=== PATIENT | male | born 1975 | race Caucasian/White ===

== ENCOUNTER 2022-02-24 13:18 | Emergency (ER) | payer OTHER, MEDICAID, SELFPAY ==
[2022-02-24] VITALS (14 sets, daily range): BP systolic 145–170; BP diastolic 81–92; PULSE 96–118; RESP 12–22; TEMP 36.9; O2SAT 96–99; BMI 35.2
--- NOTE | 2022-02-24 13:23 | DI.MRI.S_ITS ---
PROCEDURE: MR LUMBAR SPINE WO CON INDICATIONS: Back pain/urinary incontinence TECHNIQUE: Noncontrast sagittal T1 spin echo and T2 fast echo, sagittal STIR, and T2 fast spin echo through the lumbar spine. In cases with scoliosis, additional coronal T2 fast spin echo may be performed. COMPARISON: [facility], MR, MR LUMBAR SPINE WITH/WITHOUT CONTRAST, 08/15/2021, 15:42. [facility], CT, CT LUMBAR SPINE WITHOUT CONTRAST, 10/25/2021, 8:02. FINDINGS: Image quality: Excellent. Alignment and Curvature: There is normal bony alignment. Bone Marrow: L L3-4 and L4-5 interbody fusion with posterior yesenia and screw instrumentation as well as a decompressive laminectomies at L4 and L5. Wedge-shaped T12 compression fracture mild retropulsed fracture fragment and no bone marrow edema, stable from the prior Spinal Cord: Conus medullaris terminates at the L1 level. Visualized cord demonstrates normal signal and size. Paraspinous Soft Tissues: No paravertebral masses. At T11-12, posterior retropulsed fracture fragment and circumferential disc bulge results in moderate central stenosis with flattening the ventral surface of the cord. T12-L1: Normal appearance. L1-L2: Normal appearance. L2-L3: Disc space narrowing with circumferential disc bulge and hypertrophic facet joints results in moderate central stenosis. Moderate bilateral foraminal stenosis. L3-L4: Normal appearance. L4-L5: Discectomy and fusion. No central stenosis. Moderate bilateral foraminal stenosis greater on the left L5-S1: Discectomy and fusion. No central stenosis. Mild bilateral foraminal stenosis IMPRESSION: Multilevel degenerative disc disease and arthropathy results in moderate central stenosis at L2-3. Chronic T12 wedge-shaped compression fracture with retropulsed fracture fragment, stable from prior exam. Moderate T11-12 central stenosis and flattening the ventral surface of the cord. Lower lumbar spine fusion, instrumentation and decompressive laminectomies, as above Approved by: Tito Obrien M.D. on 02/24/2022 at 14:39
--- NOTE | 2022-02-24 13:45 | PC.NURSE ---
patient has a history of back surgery and back pain. This morning he had back pain and needed to urinate. Approx a half hour later after urinating he noticed his pants getting wet. Has not had incontinence since. At the ER today he had an intentional controlled urination.
--- NOTE | 2022-02-24 13:59 | ED_ITS ---
HPI - Back Pain/Injury General Chief Complaint: Back Pain/Injury Stated Complaint: Low back pain, ED-ED transfer from [facility] Seen by Provider: 02/24/22 13:23 Source: EMS History of Present Illness HPI Narrative: Patient brought in by ambulance from another hospital emergency department. I spoke with Dr. Lee the attending emergency department provider at that hospital, haribree latham, she states patient has history of chronic back pain. Had urinary incontinence while in their department this morning. Concerning for cauda equina or cord compression. No known injury. Neurologically otherwise intact. Strong patellar reflexes. Has chronic neuropathy. No IV drug use. Not diabetic. Patient needs MRI of the lumbar spine. I spoke with patient. He denies any fall or injury to his back. Three weeks ago he did injure his right lower extremity. Since then he has been limping and changing his gait and putting stress on his lower back. He states in [place] in 2014 he had surgery of his lumbar spine and has been doing well since then. No saddle paresthesia. Has chronic bilateral feet neuropathy which is not new. He states he was able to urinate this morning. He went to the hospital at 5:00 a.m.. He was able to walk to the bathroom and urinate by himself. On the 2nd episode he took wheelchair to the bathroom to urinate because of his neuropathy in his feet. When he returned in bed. He did notice that he had urinary incontinence and soiled his pants. This has not happened before. Denies any fever chills. Patient received pain medication EN route here. Patient in no distress. Vital signs noted. Related Data Previous Rx's Medication Instructions Recorded baclofen 20 mg tablet 20 mg PO TID #21 tabs 02/24/22 Allergies Allergy/AdvReac Type Severity Reaction Status Date / Time No Known Drug Allergies Allergy Verified 02/24/22 16:42 Review of Systems Review of Systems Narrative: GENERAL: Denies chills, fatigue, malaise, fever, sweats. HEENT: Denies sinus pain, ear pain, sore throat RESPIRATORY: Denies dyspnea, cough CARDIOVASCULAR: Denies chest pain, palpitations GASTROINTESTINAL: Denies nausea, vomiting, abdominal pain : Denies dysuria, frequency, hematuria, positive incontinence MUSCULOSKELETAL: denies muscle or bony pain, positive for back pain SKIN: Denies rash, skin lesions NEUROLOGIC: Denies weakness, negative for new numbness ROS Unobtainable: All systems reviewed & are unremarkable except as noted in HPI and below Patient History Social History Smoking Status: Never smoker Smoking Status: Never smoker Substance Use Type: does not use Exam Narrative Exam Narrative: GENERAL: in no distress, not toxic not dyspneic, patient in gown. Socks and shoes off HEAD: Normocephalic. EYES: Pupils equal round No scleral icterus. ENT: Mucous membranes moist. NECK: Trachea midline. CARDIOVASCULAR: Regular rate and rhythm without murmurs RESPIRATORY: Clear to auscultation. Breath sounds equal bilaterally. No wheezes, rales, or rhonchi. GASTROINTESTINAL: Abdomen soft, non-tender EXTREMITIES: No gross deformities. BACK: No flank tenderness. Mild right supragluteal muscle tenderness and right paralumbar muscle tenderness. No midline tenderness or step-off. No palpable mass. Patient able to sit up on bed without difficulty. No pain with sitting up. No pain with side bends or leaning back. NEURO: AOx4. Light touch intact to bilateral legs. Strong bilateral patellar reflexes. Strong bilateral hip and knee flexion and extension SKIN: Warm and dry PSYCH: Not anxious, is cooperative Initial Vital Signs Initial Vital Signs: Vital Signs Pulse Rate 106 H 02/24/22 13:29 Pulse Oximetry 99 02/24/22 13:29 Course Course Course Narrative: No new issues during course of stay Orders Ordered: ED Orders 02/24/22 13:23 MR lumbar spine wo con Stat 02/24/22 14:11 Ictotest Urine Stat Urinalysis and Microscopic Stat 02/24/22 15:40 CBC Auto Diff [Complete Blood Count AUTO DIFF] Stat CMP [Comprehensive Metabolic Panel] Stat Discontinued Medications Diazepam (Diazepam 10 Mg/2 Ml Syringe) 5 mg IV NOW ONE Stop: 02/24/22 14:07 Last Admin: 02/24/22 14:10 Dose: 5 mg Documented By: BERKLEY Diazepam (Diazepam 10 Mg/2 Ml Syringe) 5 mg IV NOW ONE Stop: 02/24/22 14:27 Last Admin: 02/24/22 14:35 Dose: 5 mg Documented By: BERKLEY Hydromorphone HCl (Hydromorphone 1 Mg Inj) 1 mg IV NOW ONE Stop: 02/24/22 16:36 Last Admin: 02/24/22 16:42 Dose: 1 mg Documented By: AT Lorazepam (Lorazepam 2 Mg/Ml Inj) 1 mg IV NOW ONE Stop: 02/24/22 14:00 Last Admin: 02/24/22 14:07 Dose: Not Given Documented By: BERKLEY Reevaluation(s) Reevaluation #1: Reviewed results with patient. Patient is looking for a new spine surgeon. I will provide patient phone number with Dr. Schwartz locally. At this time laboratory studies and imaging are reassuring. Likely chronic findings on MRI today. At this time uncertain source of today single episode of urinary incontinence. Patient back pain exacerbation likely due to recent broken leg that caused him to shift his gait causing to strain his lower back. He has not been immobilized. He is still walking and ambulating. Denies any calf pain no chest pain no dyspnea. Time: 16:36 Vital Signs Vital signs: Vital Signs - 8 hr 02/24/22 13:40 02/24/22 13:29 02/24/22 13:30 Temperature 98.4 F Pulse Rate 115 H 106 H Respiratory Rate 12 Blood Pressure 145/81 H Pulse Oximetry 97 99 99 Oxygen Delivery Method Room Air 02/24/22 13:35 02/24/22 13:35 02/24/22 14:00 Temperature Pulse Rate 114 H Respiratory Rate 12 Blood Pressure 145/81 H 156/84 H Pulse Oximetry 97 Oxygen Delivery Method 02/24/22 14:00 02/24/22 14:57 02/24/22 15:00 Temperature Pulse Rate 108 H 104 H 106 H Respiratory Rate 14 19 Blood Pressure Pulse Oximetry 96 97 Oxygen Delivery Method 02/24/22 15:30 Temperature Pulse Rate 110 H Respiratory Rate Blood Pressure Pulse Oximetry 98 Oxygen Delivery Method MDM - Back Pain/Injury Differential Diagnosis Differential diagnosis: Likely lumbar radiculopathy, sciatica, strain of lumbar region, discitis and other (Acute on chronic back pain. Cauda equina, cord compression syndrome) Lab Data Result diagrams: 02/24/22 15:40 02/24/22 15:40 Labs: Lab Results 02/24/22 02/24/22 02/24/22 Range/Units 14:11 14:11 15:40 WBC 8.0 (4.5-11.0) X10^3/uL RBC 4.83 (4.5-5.9) X10^6/uL Hgb 12.4 L (13.5-17.5) g/dL Hct 36.8 L (41-53) % MCV 76.3 L (80-100) fL MCH 25.6 L (26-34) PG MCHC 33.6 (30-36) % RDW 18.6 H (11.6-14.8) % Plt Count 448 H (150-400) X10^3/uL Neut % (Auto) 92.0 H (50-75) % Lymph % (Auto) 4.8 L (25-40) % Boundary % (Auto) 2.9 L (3-14) % Eos % (Auto) 0.0 L (2-4) % Baso % (Auto) 0.3 (0-2) % Neut # (Auto) 7400 H (4205-8400) /uL Lymph # (Auto) 400 L (1990-4122) /uL Boundary # (Auto) 200 (0-900) /uL Eos # (Auto) 0 (0-450) /uL Baso # (Auto) 0 (0-100) /uL Sodium (137-145) mmol/L Potassium (3.4-5.1) mmol/L Chloride (98-107) mmol/L Carbon Dioxide (22-32) mmol/L BUN (9-20) mg/dL Creatinine (0.66-1.25) mg/dL Estimated GFR (>60) mL/min BUN/Creatinine Ratio (6-22) Glucose (70-100) mg/dL Calcium (8.4-10.2) mg/dL Total Bilirubin (0.2-1.3) mg/dL AST (17-59) IU/L ALT (<50) IU/L Alkaline Phosphatase (38-126) U/L Total Protein (6.3-8.2) g/dL Albumin (3.5-5.0) g/dL Globulin (1.7-4.1) g/dL Albumin/Globulin Ratio (1.0-2.8) Urine Color Yellow Urine Appearance Clear Urine pH 6.5 (4.5-8.0) Ur Specific [place] 1.020 (1.000-1.035) Urine Protein 2+ H (Negative) Urine Glucose (UA) Negative (Negative) g/dL Urine Ketones 3+ H (NEGATIVE) Urine Occult Blood 3+ H (Negative) Urine Nitrate Negative (Negative) Urine Bilirubin 2+ H (NEGATIVE) Ur Bilirubin Confirm Negative (Negative) Urine Urobilinogen 0.2 (0.2) E.U./dL Ur Leukocyte Esterase Negative (NEGATIVE) Urine RBC Cancelled 5-10/hpf H Urine WBC Cancelled 1-5/hpf Ur Squamous Epith Cells Cancelled Ur Transition Epith Cell Cancelled Ur Renal Epithelial Cell Cancelled Calcium Oxalate Crystal Cancelled Uric Acid Crystals Cancelled Triple Phos Crystals Cancelled Other Crystals Cancelled Amorphous Sediment Cancelled Urine Bacteria Cancelled None seen Hyaline Casts Cancelled Granular Casts Cancelled RBC Casts Cancelled WBC Casts Cancelled Other Casts Cancelled Urine Mucus Cancelled Urine Trichomonas Cancelled Urine Yeast Cancelled Urine Sperm Cancelled Ur Culture Indicated? Cancelled Cult not indicated Micro UA Comment Cancelled 02/24/22 Range/Units 15:40 WBC (4.5-11.0) X10^3/uL RBC (4.5-5.9) X10^6/uL Hgb (13.5-17.5) g/dL Hct (41-53) % MCV (80-100) fL MCH (26-34) PG MCHC (30-36) % RDW (11.6-14.8) % Plt Count (150-400) X10^3/uL Neut % (Auto) (50-75) % Lymph % (Auto) (25-40) % Boundary % (Auto) (3-14) % Eos % (Auto) (2-4) % Baso % (Auto) (0-2) % Neut # (Auto) (9342-3663) /uL Lymph # (Auto) (3161-3290) /uL Boundary # (Auto) (0-900) /uL Eos # (Auto) (0-450) /uL Baso # (Auto) (0-100) /uL Sodium 135 L (137-145) mmol/L Potassium 4.4 (3.4-5.1) mmol/L Chloride 97 L (98-107) mmol/L Carbon Dioxide 23 (22-32) mmol/L BUN 13 (9-20) mg/dL Creatinine 0.93 (0.66-1.25) mg/dL Estimated GFR > 60 (>60) mL/min BUN/Creatinine Ratio 14.0 (6-22) Glucose 146 H (70-100) mg/dL Calcium 8.7 (8.4-10.2) mg/dL Total Bilirubin 1.5 H (0.2-1.3) mg/dL AST 47 (17-59) IU/L ALT 32 (<50) IU/L Alkaline Phosphatase 105 (38-126) U/L Total Protein 8.4 H (6.3-8.2) g/dL Albumin 5.0 (3.5-5.0) g/dL Globulin 3.4 (1.7-4.1) g/dL Albumin/Globulin Ratio 1.5 (1.0-2.8) Urine Color Urine Appearance Urine pH (4.5-8.0) Ur Specific [place] (1.000-1.035) Urine Protein (Negative) Urine Glucose (UA) (Negative) g/dL Urine Ketones (NEGATIVE) Urine Occult Blood (Negative) Urine Nitrate (Negative) Urine Bilirubin (NEGATIVE) Ur Bilirubin Confirm (Negative) Urine Urobilinogen (0.2) E.U./dL Ur Leukocyte Esterase (NEGATIVE) Urine RBC Urine WBC Ur Squamous Epith Cells Ur Transition Epith Cell Ur Renal Epithelial Cell Calcium Oxalate Crystal Uric Acid Crystals Triple Phos Crystals Other Crystals Amorphous Sediment Urine Bacteria Hyaline Casts Granular Casts RBC Casts WBC Casts Other Casts Urine Mucus Urine Trichomonas Urine Yeast Urine Sperm Ur Culture Indicated? Micro UA Comment Urine Dip Bedside Urine Glucose Negative Bedside Urine Bilirubin - Negative Bedside Urine Ketone +++ 80 Urine Specific [place] 1.020 Bedside Urine Occult Blood +++ Bedside Urine pH 6.0 Bedside Urine Protein + 30 Bedside Urine Urobilinogen - Negative Bedside Urine Nitrite - Negative Bedside Urine Leukocytes - Negative Esterase Imaging Data MRI lumbar spine: Radiologist's Impression: [address] [address] Magnetic Resonance Report Signed Patient: Pa Turner MR#: [id number] : 1975 Acct:[id number] Age/Sex: 46 / M Date of Service: 02/24/22 Loc: ED Accession Number: [id number] ?? Procedure: MR lumbar spine wo con Ordering Provider: Sedrick Kay MD PROCEDURE:? MR LUMBAR SPINE WO CON ? INDICATIONS:? Back pain/urinary incontinence ? TECHNIQUE:? Noncontrast sagittal T1 spin echo and T2 fast echo, sagittal STIR, and T2 fast spin echo through the lumbar spine.? In cases with scoliosis, additional coronal T2 fast spin echo may be performed.? ? COMPARISON:? [facility], MR, MR LUMBAR SPINE WITH/WITHOUT CONTRAST, 08/15/2021, 15:42.? [facility], CT, CT LUMBAR SPINE WITHOUT CONTRAST, 10/25/2021, 8:02. ? FINDINGS:? Image quality:? Excellent.? ? Alignment and Curvature:? There is normal bony alignment.? ? Bone Marrow:? L L3-4 and L4-5 interbody fusion with posterior yesenia and screw instrumentation as well as a decompressive laminectomies at L4 and L5. ? Wedge-shaped T12 compression fracture mild retropulsed fracture fragment and no bone marrow edema, stable from the prior ? Spinal Cord:? Conus medullaris terminates at the L1 level.? Visualized cord demonstrates normal signal and size.? ? Paraspinous Soft Tissues:? No paravertebral masses. ? At T11-12, posterior retropulsed fracture fragment and circumferential disc bulge results in moderate central stenosis with flattening the ventral surface of the cord.? ? T12-L1:? Normal appearance.? ? L1-L2:? Normal appearance.? ? L2-L3:? Disc space narrowing with circumferential disc bulge and hypertrophic facet joints results in moderate central stenosis.? Moderate bilateral foraminal stenosis. ? L3-L4:? Normal appearance.? ? L4-L5:? Discectomy and fusion.? No central stenosis.? Moderate bilateral foraminal stenosis greater on the left ? L5-S1:? Discectomy and fusion.? No central stenosis.? Mild bilateral foraminal stenosis ? ? IMPRESSION:? ? Multilevel degenerative disc disease and arthropathy results in moderate central stenosis at L2-3. ? Chronic T12 wedge-shaped compression fracture with retropulsed fracture fragment, stable from prior exam.? Moderate T11-12 central stenosis and flattening the ventral surface of the cord. ? Lower lumbar spine fusion, instrumentation and decompressive laminectomies, as above ? Approved by: Tito Obrien M.D. on 02/24/2022 at 14:39? MDM Narrative Medical decision making narrative: Appropriate for discharge. Exam and imaging and blood work reassuring. Patient symptoms likely due to his recent leg injury causing him to limp and change his gait and straining his lower back. At this time, uncertain source with a single episode of urinary incontinence for patient. Patient has not had any incontinence here. Return precautions reviewed with him. MRI reviewed. No acute changes. Ortho Spine referral given to patient. He desires discharge home. Discharge Plan Departure Patient Disposition: Home Clinical Impression: Strain of lumbar region Instructions: DI for Back Strain or Sprain Activity Restrictions/Additional Instructions: No driving or operating machinery today or when taking prescribed muscle relaxer. Please use your crutches when ambulating to reduce the strain on your lower back. Call provided ortho spine provider on Saturday for established a new spine surgeon in for re-evaluation. Return if worse if any questions or concerns Prescriptions: New baclofen 20 mg tablet 20 mg PO TID Qty: 21 0RF Referrals: Josy Storey MD [Physician] - Stand Alone Forms: Work Release Note
[2022-02-24] MEDS: diazePAM 10 MG/2 ML SYRINGE 5 MG IV ×2 (14:10→14:35)
[2022-02-24 14:51] LABS: Appearance Urine UA CLEAR; Bilirubin Urine UA 2+ (NEGATIVE); Color Urine UA YELLOW; Glucose Urine UA NEGATIVE (Negative); Ketones Urine UA 3+ (NEGATIVE); Leukocyte Esterase Urine UA NEGATIVE (NEGATIVE); Nitrite Urine UA NEGATIVE (Negative); Occult Blood Urine UA 3+ (Negative); Protein Urine UA 2+ (Negative); Urobilinogen Urine UA 0.2 E.U./dL (0.2); pH Urine UA 6.5 (4.5-8.0)
[2022-02-24 14:55] LABS: Ictotest Urine Negative (Negative)
[2022-02-24 14:56] LABS: Bacteria Urine None Seen; Culture Indicated Urine Cult Not Indicated; RBC Urine 5-10/HPF (0-5/HPF); WBC Urine 1-5/HPF (0-5/HPF)
[2022-02-24 15:58] LABS: Add Manual Diff / Slide Review NO; Basophils Absolute Auto 0 /uL (0-100); Basophils Percent Auto 0.3 % (0-2); Eosinophils Absolute Auto 0 /uL (0-450); Hematocrit 36.8 % (41-53); Hemoglobin 12.4 g/dL (13.5-17.5); Lymphocytes Absolute Auto 400 /uL (1100-4500); Lymphocytes Percent Auto 4.8 % (25-40); Mean Corpuscular HGB Conc 33.6 % (30-36); Mean Corpuscular Hemoglobin 25.6 PG (26-34); Mean Corpuscular Volume 76.3 fL (80-100); Monocytes Absolute Auto 200 /uL (0-900); Monocytes Percent Auto 2.9 % (3-14); Neutrophils Absolute Auto 7400 /uL (1500-7000); Platelet Count 448 X10^3/uL (150-400); Red Blood Cell Count 4.83 X10^6/uL (4.5-5.9); Red Cell Distribution Width 18.6 % (11.6-14.8)
[2022-02-24 16:06] LABS: Alanine Aminotransferase 32 IU/L (<50); Albumin Globulin Ratio 1.5 (1.0-2.8); Alkaline Phosphatase 105 U/L (38-126); Aspartate Aminotransferase 47 IU/L (17-59); Bilirubin Total 1.5 mg/dL (0.2-1.3); Blood Urea Nitrogen 13 mg/dL (9-20); Calcium 8.7 mg/dL (8.4-10.2); Carbon Dioxide 23 mmol/L (22-32); Chloride 97 mmol/L (98-107); Estimated Glomerular Filt Rate > 60 mL/min (>60); Globulin 3.4 g/dL (1.7-4.1); Glucose 146 mg/dL (70-100); HEMOLYSIS < 15 (0-50); Potassium 4.4 mmol/L (3.4-5.1); Sodium 135 mmol/L (137-145); Total Protein 8.4 g/dL (6.3-8.2)
[2022-02-24] MEDS: HYDROMORPHONE 1 MG INJ IV (16:42)
== END 2022-02-24 18:34 | disposition home or self-care (01) ==
PROVIDERS: Emergency Provider Emergency Medicine
DX: S39.012A Strain of muscle, fascia and tendon of lower back, initial encounter (principal)
CPT/HCPCS: 72148; 80053; 81001; 81003; 85025; 96374; 96375; 96376; 99284; J1170; J3360

== ENCOUNTER 2022-08-23 14:46 | Emergency (ER) | payer OTHER, MEDICAID, SELFPAY ==
[2022-08-23 14:50] VITALS: BP 141/99; PULSE 104; RESP 18; TEMP 36.3; O2SAT 98; BMI 77.0
--- NOTE | 2022-08-23 15:46 | ED_ITS ---
HPI - Back Pain/Injury <Arturo Azul PA-C - Last Filed: 08/23/22 20:21> General Chief Complaint: Back Pain/Injury Stated Complaint: Chronic back pain Time Seen by Provider: 08/23/22 14:58 Source: patient and family History of Present Illness HPI Narrative: This is a 46-year-old male presents to the emergency department due to acute on chronic lower back pain with new left lower extremity numbness affecting primarily the calf. Also states that he is worsening pain going down his posterior bilateral lower extremities. Patient has a extensive history of back surgeries including 2 surgeries with orthopedic spine surgeon in [place] as well as a neurosurgeon in [place]. He had an established neurosurgeon here in [facility] as well. Denies any urinary or bowel incontinence, saddle paresthesia, fevers, or any other concerning signs or symptoms. Se patient states that he called his neurosurgeon's office today who was told to come here to the emergency department. Related Data Previous Rx's Medication Instructions Recorded baclofen 20 mg tablet 20 mg PO TID #21 tabs 02/24/22 oxycodone 5 mg tablet 5 mg PO Q6H PRN pain #14 tabs 08/23/22 Allergies Allergy/AdvReac Type Severity Reaction Status Date / Time No Known Drug Allergies Allergy Verified 02/24/22 16:42 Review of Systems <Arturo Azul PA-C - Last Filed: 08/23/22 20:21> Review of Systems Narrative: GENERAL: Denies chills, fatigue, malaise, fever, sweats. HEENT: Denies sinus pain, ear pain, sore throat, difficulty swallowing, dizziness. RESPIRATORY: Denies dyspnea, cough, wheezing, hemoptysis, sputum. CARDIOVASCULAR: Denies chest pain, palpitations, orthopnea, edema, GASTROINTESTINAL: Denies nausea, vomiting, abdominal pain, diarrhea, constipation, melena. : Denies dysuria, frequency, incontinence, hematuria, urinary retention. MUSCULOSKELETAL: Reports lower back pain and bilateral lower extremity pain SKIN: Denies rash, skin lesions, or other NEUROLOGIC: Reports left lower extremity numbness, denies change in speech, confusion, seizures, incoordination. PSYCHIATRIC: No concerning psychosocial issues. 12 point review of systems is negative except for those stated above Patient History <Arturo Azul PA-C - Last Filed: 08/23/22 20:21> Social History Smoking Status: Never smoker Smoking Status: Never smoker Substance Use Type: does not use Exam <BORIS Gamez Last Filed: 08/23/22 20:21> Narrative Exam Narrative: GENERAL: Well-developed patient, in mild distress. HEAD: Atraumatic. Normocephalic. EYES: Pupils equal round and reactive. Extraocular motions intact. No scleral icterus. No injection or drainage. ENT: Nose without bleeding, purulent drainage. Throat without erythema, tonsillar hypertrophy or exudate. Airway patent. NECK: Trachea midline. Non tender EXTREMITIES: No edema or joint tenderness. BACK: Lumbar tenderness to palpation. No flank tenderness. NEURO: Decreased sensation to the left calf SKIN: No rash or erythema of visible areas Initial Vital Signs Initial Vital Signs: Vital Signs Temperature 97.4 F L 08/23/22 14:50 Pulse Rate 104 H 08/23/22 14:50 Respiratory Rate 18 08/23/22 14:50 Blood Pressure 141/99 H 08/23/22 14:50 Pulse Oximetry 98 08/23/22 14:50 Oxygen Delivery Method 08/23/22 14:50 <Mireille Blevins DO - Last Filed: 08/24/22 02:28> Initial Vital Signs Initial Vital Signs: Vital Signs Temperature 97.4 F L 08/23/22 14:50 Pulse Rate 104 H 08/23/22 14:50 Respiratory Rate 18 08/23/22 14:50 Blood Pressure 141/99 H 08/23/22 14:50 Pulse Oximetry 98 08/23/22 14:50 Oxygen Delivery Method 08/23/22 14:50 Course <Arturo Azul PA-C - Last Filed: 08/23/22 20:21> Orders Ordered: ED Orders 08/23/22 18:40 MR lumbar spine wo con Stat Discontinued Medications Diazepam (Diazepam 2 Mg Tablet) 2 mg PO NOW ONE Stop: 08/23/22 15:33 Last Admin: 08/23/22 19:28 Dose: 2 mg Documented By: PATEL Oxycodone/Acetaminophen (Oxycodone/Apap 5/325 Prepack) 1 bottle MISC SEEINSTR ONE Stop: 08/23/22 22:51 Last Admin: 08/23/22 22:57 Dose: 1 bottle Documented By: MARI Reevaluation(s) Reevaluation #1: 1550: Informed by oxygen equipment technician [facility] Discussed with the patient and he states would comfortable waiting until then here in the emergency department. Vital Signs Vital signs: Vital Signs - 8 hr 08/23/22 21:24 Pulse Rate 86 Blood Pressure 128/91 H Pulse Oximetry 97 Oxygen Delivery Method Room Air <Mireille Blevnis DO - Last Filed: 08/24/22 02:28> Orders Ordered: ED Orders 08/23/22 18:40 MR lumbar spine wo con Stat Discontinued Medications Diazepam (Diazepam 2 Mg Tablet) 2 mg PO NOW ONE Stop: 08/23/22 15:33 Last Admin: 08/23/22 19:28 Dose: 2 mg Documented By: PATEL Oxycodone/Acetaminophen (Oxycodone/Apap 5/325 Prepack) 1 bottle MISC SEEINSTR ONE Stop: 08/23/22 22:51 Last Admin: 08/23/22 22:57 Dose: 1 bottle Documented By: MARI Consultations Consultation #1: Dr. Martinez, neurosurgery [facility]. Reviewed current findings from [facility], appears stable from his last MRI according to report. He not able to r eview the images at this moment but patient is felt appropriate for discharge and follow-up with office. Dr. Martinez states office will reach out to patient during the daytime tomorrow short-term follow-up. Vital Signs Vital signs: Vital Signs - 8 hr 08/23/22 21:24 Pulse Rate 86 Blood Pressure 128/91 H Pulse Oximetry 97 Oxygen Delivery Method Room Air MDM - Back Pain/Injury <Arturo Azul PA-C - Last Filed: 08/23/22 20:21> Medical Records Medical records narrative: On record review patient was seen approximately 6 months ago with similar symptoms along with an episode of urinary incontinence. Lumbar MRI was ordered which showed IMPRESSION:? ? Multilevel degenerative disc disease and arthropathy results in moderate central stenosis at L2-3. ? Chronic T12 wedge-shaped compression fracture with retropulsed fracture fragment, stable from prior exam.? Moderate T11-12 central stenosis and flattening the ventral surface of the cord. ? Lower lumbar spine fusion, instrumentation and decompressive laminectomies, as above These findings were determined to be chronic in nature the patient was instructed to follow up with spine surgeon, Dr. Schwartz for further evaluation. MDM Narrative Medical decision making narrative: This is a 46-year-old male presents to the emergency department due to acute on chronic lower back pain with new left lower extremity numbness. Due to this new numbness a lumbar MRI was ordered. Lumbar MRI pending at of this note prescribed this patient states that he is moderate anxiety during MRI. Discussed patient and transfer care to my attending physician, Dr. Blevins for further management. <Mireille Blevins, DO - Last Filed: 08/24/22 02:28> Imaging Data MRI lumbar spine: Radiologist's Impression: Pa Turner??46??M??1975 ? Allergy/Adv: No Known Drug Allergies Close Lumbar Spine MRI (Signed) Farzad Vidales - 08/23/22 Lumbar Spine MRI (Signed) Tito Obrien - 02/24/22 Launch?[place] [address] Magnetic Resonance Report Signed Patient: Pa Turner MR#: [id number] : 1975 Acct:[id number] Age/Sex: 46 / M Date of Service: 08/23/22 Loc: ED Accession Number: [id number] ?? Procedure: MR lumbar spine wo con Ordering Provider: Arturo Azul P.A-C PROCEDURE:? MR LUMBAR SPINE WO CON ? INDICATIONS:? Hx of spinal surgeries, new Left lower leg numnbess ? TECHNIQUE:? Noncontrast sagittal T1 spin echo and T2 fast echo, sagittal STIR, and T2 fast spin echo through the lumbar spine.? In cases with scoliosis, additional coronal T2 fast spin echo may be performed.? ? COMPARISON:? [facility], , MR LUMBAR SPINE WO CON, 02/24/2022, 14:33. ? FINDINGS:? Image quality:? There is magnetic susceptibility artifact secondary to patient's surgical hardware limiting evaluation.? ? Alignment and Curvature:? There is unchanged bony alignment.? ? Bone Marrow:? Marrow is of normal overall signal.? No acute vertebral body compression fractures.? There is a moderate superior endplate anterior compression deformity of the T12 vertebral body redemonstrated.? There is a T1 and T2 hyperintense lesion within the L2 vertebral body redemonstrated consistent with an intraosseous hemangioma.? ? Postsurgical changes redemonstrated in the lower lumbar spine status post posterior fixation and fusion at L3 through S1 with bilateral pedicle screws and posterior fixation rods.? Posterior laminectomies are also demonstrated at L4 and L5.? There are intervertebral spacers at L3-L4, L4-5, and L5-S1 with partial fusion at L4-5. ? Spinal Cord:? Conus medullaris terminates at the L1 level.? Visualized cord demonstrates normal signal and size.? ? Paraspinous Soft Tissues:? No paravertebral masses.? ? T11-T12:? There is slight posterior displacement along the superior endplate of the T12 vertebral body with associated mild spinal canal narrowing redemonstrated. ? T12-L1:? Normal appearance.? ? L1-L2:? Normal in appearance. ? L2-L3:? Mild disc desiccation with mild loss of disc height and a small broad- based disc bulge.? There is moderate facet arthropathy and ligamentum flavum virtually.? Findings contribute to moderate to severe spinal canal narrowing with moderate left and [id number] right neural foraminal narrowing.? Findings are similar to the prior study. ? L3-L4:? Status post partial discectomy within intervertebral spacer.? Prior posterior laminectomy also redemonstrated.? No spinal canal narrowing.? There is minimal bilateral neural foraminal narrowing ? L4-L5:? Status post partial discectomy with an intervertebral spacer and partial fusion.? Posterior laminectomy also redemonstrated.? No spinal canal narrowing.? Neural foramina are not well evaluated due to magnetic susceptibility artifact.? There is suspec karina mild bilateral narrowing. ? L5-S1:? Status post partial discectomy with an intervertebral spacer as well as a posterior laminectomy.? No spinal canal narrowing.? No definite neural foraminal narrowing. ? ? IMPRESSION:? ? 1. Extensive postsurgical changes in the lower lumbar spine status post posterior fusion and fixation at L3 through S1 with bilateral pedicle screws, intervertebral spacers, and posterior laminectomies. ? 2. Moderate to severe spinal canal narrowing at L2-L3.? Findings are similar to the prior study. ? 3. Chronic superior endplate compression deformity of the T12 vertebral body with associated mild spinal canal narrowing. ? ? ? Dictated by: Farzad Vidales M.D. on 08/23/2022 at 21:53 ? ? Approved by: Farzad Vidales M.D. on 08/23/2022 at 22:09?? [facility] Narrative Medical decision making narrative: This is a 46-year-old male presents to the emergency department due to acute on chronic lower back pain with new left lower extremity numbness. Due to this new numbness a lumbar MRI was ordered. Lumbar MRI pending at of this note prescribed this patient states that he is moderate anxiety during MRI. Discussed patient and transfer care to my attending physician, Dr. Blevins for further management. 08/23/22 Felicity: Patient signed out to myself by [facility] Jorge Alberto. Patient was seen and evaluated independently by myself. He has a history of 3 prior surgeries, he has had some persistent symptoms over the years he is had injections in the localized area is in process of potentially receiving a neuro stimulator. Patient states he developed new numbness in his left calf and new pain down his right leg that was significantly worsening and he was falling a lot. He was seen at [facility] in [place] and was discharged with muscle relaxer as and oral narcotic pain medication which he states was helpful. He states he was continuing to having falling but has not had any today and has been able to ambulate. States the numbness isn't progressing further but is still present. He denies any new bowel or bladder incontinence. He denies any other acute neurologic changes. He sees Dr. Martinez with Neurosurgery out of [facility]. Patient was signed out while awaiting MR report, is found to have extensive postsurgical changes he has moderate to severe narrowing at L2-L3 there is also a T1 and T2 hyperintense lesion at the L2 vertebral body re demonstrated consistent with intraosseous hemangioma, slight displacement along the superior endplate of T12 vertebral body with associated mild spinal canal narrowing redemonstrated. There is moderate left and moderate to right neural foraminal narrowing consistent with prior study. I spoke with Dr. Martinez who reviewed his images over the phone. Patient is felt appropriate to discharge home, he did ask if we can push MR images and will also send a disc in case any technical issues. He will have the office reach out to the patient in the morning. Discussed with patient he feels comfortable with this plan, he is well aware of red flag symptoms and return precautions. Was given short course of narcotic pain medication. Discharge Plan Departure Patient Disposition: Home Clinical Impression: Radiculopathy, Spinal stenosis of lumbar region Activity Restrictions/Additional Instructions: I spoke with Dr. Martinez this evening. He would like to follow-up with you in the office. He states the office should be reaching out to you tomorrow. If you have not heard from them by noon tomorrow, please call Dr. Martinez's office. Your MRI images were pushed so he may be able to review them tomorrow but take the MR disc with you in case there are technical issues with your images being transferred. You may take Tylenol up to a 1000 mg every 6 hours as needed. You may take oxycodone 1-2 tablets every 6 hours as needed. Prescription sent to [facility] in [place] Please return for new or worsening weakness, numbness, loss of sensation, loss of bowel or bladder control, inability to walk or ambulate, fevers, or other new or concerning changes. Prescriptions: New oxycodone 5 mg tablet 5 mg PO Q6H PRN (Reason: pain) Qty: 14 0RF No Action baclofen 20 mg tablet 20 mg PO TID Qty: 21 0RF Stand Alone Forms: Patient Portal/API
--- NOTE | 2022-08-23 18:07 | PC.NURSE ---
Pt ambulating with slow, steady gait.
--- NOTE | 2022-08-23 18:40 | DI.MRI.S_ITS ---
PROCEDURE: MR LUMBAR SPINE WO CON INDICATIONS: Hx of spinal surgeries, new Left lower leg numnbess TECHNIQUE: Noncontrast sagittal T1 spin echo and T2 fast echo, sagittal STIR, and T2 fast spin echo through the lumbar spine. In cases with scoliosis, additional coronal T2 fast spin echo may be performed. COMPARISON: [facility], , MR LUMBAR SPINE WO CON, 02/24/2022, 14:33. FINDINGS: Image quality: There is magnetic susceptibility artifact secondary to patient's surgical hardware limiting evaluation. Alignment and Curvature: There is unchanged bony alignment. Bone Marrow: Marrow is of normal overall signal. No acute vertebral body compression fractures. There is a moderate superior endplate anterior compression deformity of the T12 vertebral body redemonstrated. There is a T1 and T2 hyperintense lesion within the L2 vertebral body redemonstrated consistent with an intraosseous hemangioma. Postsurgical changes redemonstrated in the lower lumbar spine status post posterior fixation and fusion at L3 through S1 with bilateral pedicle screws and posterior fixation rods. Posterior laminectomies are also demonstrated at L4 and L5. There are intervertebral spacers at L3-L4, L4-5, and L5-S1 with partial fusion at L4-5. Spinal Cord: Conus medullaris terminates at the L1 level. Visualized cord demonstrates normal signal and size. Paraspinous Soft Tissues: No paravertebral masses. T11-T12: There is slight posterior displacement along the superior endplate of the T12 vertebral body with associated mild spinal canal narrowing redemonstrated. T12-L1: Normal appearance. L1-L2: Normal in appearance. L2-L3: Mild disc desiccation with mild loss of disc height and a small broad-based disc bulge. There is moderate facet arthropathy and ligamentum flavum virtually. Findings contribute to moderate to severe spinal canal narrowing with moderate left and [id number] right neural foraminal narrowing. Findings are similar to the prior study. L3-L4: Status post partial discectomy within intervertebral spacer. Prior posterior laminectomy also redemonstrated. No spinal canal narrowing. There is minimal bilateral neural foraminal narrowing L4-L5: Status post partial discectomy with an intervertebral spacer and partial fusion. Posterior laminectomy also redemonstrated. No spinal canal narrowing. Neural foramina are not well evaluated due to magnetic susceptibility artifact. There is suspected mild bilateral narrowing. L5-S1: Status post partial discectomy with an intervertebral spacer as well as a posterior laminectomy. No spinal canal narrowing. No definite neural foraminal narrowing. IMPRESSION: 1. Extensive postsurgical changes in the lower lumbar spine status post posterior fusion and fixation at L3 through S1 with bilateral pedicle screws, intervertebral spacers, and posterior laminectomies. 2. Moderate to severe spinal canal narrowing at L2-L3. Findings are similar to the prior study. 3. Chronic superior endplate compression deformity of the T12 vertebral body with associated mild spinal canal narrowing. Dictated by: Farzad Vidales M.D. on 08/23/2022 at 21:53 Approved by: Farzad Vidales M.D. on 08/23/2022 at 22:09
[2022-08-23] MEDS: diazePAM 2 MG TABLET PO (19:28)
[2022-08-23 21:24] VITALS: BP 128/91; PULSE 86; O2SAT 97
[2022-08-23] MEDS: OXYCODONE/APAP 5/325 PREPACK 1 BOTTLE MISC (22:57)
== END 2022-08-23 23:05 | disposition home or self-care (01) ==
PROVIDERS: Emergency Provider Emergency Medicine
DX: M54.16 Radiculopathy, lumbar region (principal); M48.061 Spinal stenosis, lumbar region without neurogenic claudication
CPT/HCPCS: 72148; 99283

== ENCOUNTER 2022-11-10 21:54 | Emergency (ER) | payer OTHER, MEDICAID, SELFPAY ==
[2022-11-10 22:00] VITALS: BP 150/105; PULSE 83; RESP 18; TEMP 36.7; O2SAT 98; BMI 35.2
--- NOTE | 2022-11-10 22:04 | PC.NURSE ---
Addendum entered by Isabell Mccollum R.N. 11/10/22 22:09: Pt reports slipping on a ramp on 10/24/22 but catching himself and having subsequent intermittent lower right back pain. Pt presents tonight with worsening back pain that radiates to his right testicle and right leg. Original Note: Pt reports 3 prior back surgeries since 2009.
--- NOTE | 2022-11-10 22:10 | ED.BACK ---
HPI - Back Pain/Injury General Chief Complaint: Back Pain/Injury Stated Complaint: back pain Time Seen by Provider: 11/10/22 21:56 Source: patient History of Present Illness HPI Narrative: 47-year-old male nonsmoker with longstanding history of back problems, prior surgeries and radiculopathy with left-sided footdrop presents with his in the chief complaint of increasing pain in his right lower back with radiation around his side and into his right testicle and somewhat extending into his right leg, there is some numbness down his right leg but no weakness. He has no new footdrop, no new lower extremity weakness. No trauma, fever or use of blood thinners. No trouble controlling bowel or bladder. His pain is worse when he moves and improves with rest. He does take Lyrica and methocarbamol but does not have any opioids and has not taken steroids and some time. He does have a consultation with his back surgeon upcoming to discuss the use of a back stimulator. He states that he had been relatively stable until a few weeks ago when he was carrying a heavy object and felt a pulling sensation in his back. He denies any significant or specific traumatic injury Related Data Previous Rx's Medication Instructions Recorded baclofen 20 mg tablet 20 mg PO TID #21 tabs 02/24/22 oxycodone 5 mg tablet 5 mg PO Q6H PRN pain #14 tabs 08/23/22 hydrocodone 5 mg-acetaminophen 325 1 tab PO Q4-6H PRN pain #20 tabs 11/10/22 mg tablet methylprednisolone 4 mg tablets in See Rx Instructions PO .COMPLEX 11/10/22 a dose pack (Medrol (Ambrose)) #21 ea Allergies Allergy/AdvReac Type Severity Reaction Status Date / Time No Known Drug Allergies Allergy Verified 02/24/22 16:42 Review of Systems Review of Systems Narrative: GENERAL: Denies chills, fatigue, malaise, fever, sweats. HEENT: Denies sinus pain, ear pain, sore throat, difficulty swallowing, dizziness. RESPIRATORY: Denies dyspnea, cough, wheezing, hemoptysis, sputum. CARDIOVASCULAR: Denies chest pain, palpitations, orthopnea, edema, GASTROINTESTINAL: Denies nausea, vomiting, abdominal pain, diarrhea, constipation, melena. : Denies dysuria, frequency, incontinence, hematuria, urinary retention. MUSCULOSKELETAL: See HPI SKIN: Denies rash, skin lesions, or other NEUROLOGIC: See HPI PSYCHIATRIC: No concerning psychosocial issues. 12 point review of systems is negative except for those stated above Patient History Social History Smoking Status: Never smoker Smoking Status: Never smoker Substance Use Type: does not use Exam Narrative Exam Narrative: GENERAL: [47] year old patient appears stated age. Well-developed patient, in mild distress. HEAD: Atraumatic. Normocephalic. EYES: Pupils equal round and reactive. Extraocular motions intact. No scleral icterus. No injection or drainage. ENT: Nose without bleeding, purulent drainage. Throat without erythema, tonsillar hypertrophy or exudate. Airway patent. NECK: Trachea midline. Non tender CARDIOVASCULAR: Regular rate and rhythm without murmurs, gallops, or rubs. RESPIRATORY: Clear to auscultation. Breath sounds equal bilaterally. No wheezes, rales, or rhonchi. GASTROINTESTINAL: Abdomen soft, non-tender, nondistended. EXTREMITIES: No edema or joint tenderness. BACK: chlorine cell tender but free of any obvious external abnormalities. Patient exam notes decreased range of motion and muscle spasm, but no CVA tenderness, or vertebral point tenderness. There are no symptoms of cauda equina such as saddle anesthesia, and decreased reflexes, decreased sensation or strength. NEURO: AOx3. SKIN: No rash or erythema of visible areas Initial Vital Signs Initial Vital Signs: Vital Signs Temperature 98.1 F 11/10/22 22:00 Pulse Rate 83 11/10/22 22:00 Respiratory Rate 18 11/10/22 22:00 Blood Pressure 150/105 H 11/10/22 22:00 Pulse Oximetry 98 11/10/22 22:00 Oxygen Delivery Method Room Air 11/10/22 22:00 Course Orders Ordered: Discontinued Medications Hydrocodone Bitart/Acetaminophen (Hydrocodone/Acet 5/325 Prepack) 1 bottle MISC SEEINSTR ONE Stop: 11/10/22 23:18 Last Admin: 11/10/22 23:24 Dose: 1 bottle Documented By: CAESAR Hydromorphone HCl (Hydromorphone 1 Mg Inj) 1 mg IM NOW ONE Stop: 11/10/22 23:17 Last Admin: 11/10/22 23:24 Dose: 1 mg Documented By: CAESAR Ketorolac Tromethamine (Ketorolac 30 Mg/Ml Vial) 30 mg IM NOW ONE Stop: 11/10/22 23:17 Last Admin: 11/10/22 23:25 Dose: 30 mg Documented By: SB Prednisone (Prednisone 20 Mg Tablet) 40 mg PO NOW ONE Stop: 11/10/22 23:17 Last Admin: 11/10/22 23:25 Dose: 40 mg Documented By: CAESAR Vital Signs Vital signs: Vital Signs - 8 hr 11/10/22 22:00 11/10/22 22:31 11/10/22 23:00 Temperature 98.1 F Pulse Rate 83 64 Respiratory Rate 18 Blood Pressure 150/105 H 143/96 H 129/91 H Pulse Oximetry 98 100 Oxygen Delivery Method Room Air 11/10/22 23:00 11/10/22 23:30 11/10/22 23:30 Temperature Pulse Rate 69 67 Respiratory Rate Blood Pressure 140/94 H Pulse Oximetry 100 100 Oxygen Delivery Method MDM - Back Pain/Injury MDM Narrative Medical decision making narrative: CC: 47-year-old male with longstanding history of back pain Complicating co-morbidities: Data collected from: Patient Medical records reviewed: Prior notes reviewed in our EMR Differential considered, but not limited to: Lumbar radiculopathy, cauda equina, epidural abscess, epidural hematoma versus other Exam documented above, pertinent findings include: No saddle anesthesia, 5/5 muscle strength bilateral lower extremities, sensation intact, reflexes intact. Treatments: Dilaudid, ketorolac, steroid Re-evaluations: Patient does have improvement in symptoms Discussion: Patient with chronic back pain presents with worsening of symptoms but no red flag findings suggestive of a neurosurgical emergency such as saddle anesthesia, depressed reflexes, lower extremity weakness, fever, use of blood thinners. His symptoms improve with above-stated therapies. Prescription sent to his pharmacy. He has scheduled follow-up with his spine doctors. He and family understand and agree with the diagnosis and plan and have had their questions answered to their apparent satisfaction Disposition: see below, along with detailed discharge instructions that have been reviewed with patient as well as indications for ED re-evaluation and additional outpatient follow up Discharge Plan Departure Patient Disposition: Home Clinical Impression: Acute back pain with radiculopathy Instructions: DI for Lumbar Radiculopathy Activity Restrictions/Additional Instructions: *You have been diagnosed with [lumbar radiculopathy. As we discussed your history and physical exam are reassuring and there is no obvious evidence of a neurosurgical emergency] *What to do: *Please continue to take your regular medications as directed. [x ] New medication prescriptions sent to your pharmacy: [ [facility]] [ ] New medication written as a paper prescription [ ] No new medications given *Please follow up with your primary care provider in 2-3 days, call for an appointment. Let them know you were seen in the Emergency Department and that we ask that you be seen in follow up. We will electronically transmit a record of today's note if your PCP is in our system *If you do not have a primary care provider please contact the [facility] Resource line at [phone]. They will ask some questions about your medical history and help get you set up with a doctor in the community. *Return to Emergency Department if you should have any new, worsening or concerning symptoms, such as [fever greater than 101 F, shaking chills, worsening pain, persistent vomiting or other bothersome symptoms] You have been prescribed a short course of narcotic medications. These are potentially dangerous and addictive medications that should be used carefully. While on these medications you cannot drive or operate heavy machinery. Additionally, you cannot sign legal documents or perform any duties such as this. 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 Please understand that we cannot provide further refills of narcotics or controlled substances through the ED and your pain management will need to be through your Primary Care Provider Prescriptions: New hydrocodone-acetaminophen 5-325 mg tablet 1 tab PO Q4-6H PRN (Reason: pain) Qty: 20 0RF methylprednisolone [Medrol (Ambrose)] 4 mg tablets,dose pack See Rx Instructions .ROUTE .COMPLEX Qty: 21 0RF Rx Instructions: orally per package directions No Action oxycodone 5 mg tablet 5 mg PO Q6H PRN (Reason: pain) Qty: 14 0RF baclofen 20 mg tablet 20 mg PO TID Qty: 21 0RF Referrals: Alex Barth DO [Physician] - Stand Alone Forms: Patient Portal/API
[2022-11-10 22:31] VITALS: BP 143/96; PULSE 64; O2SAT 100
[2022-11-10 23:00] VITALS: BP 129/91; PULSE 69; O2SAT 100
[2022-11-10] MEDS: HYDROCODONE/ACET 5/325 PREPACK 1 BOTTLE MISC (23:24)
[2022-11-10] MEDS: HYDROMORPHONE 1 MG INJ IM (23:24)
[2022-11-10] MEDS: KETOROLAC 30 MG/ML VIAL IM (23:25)
[2022-11-10] MEDS: predniSONE 20 MG TABLET 40 MG PO (23:25)
[2022-11-10 23:30] VITALS: BP 140/94; PULSE 67; O2SAT 100
== END 2022-11-11 00:01 | disposition home or self-care (01) ==
PROVIDERS: Emergency Provider Emergency Medicine
DX: M54.16 Radiculopathy, lumbar region (principal)
CPT/HCPCS: 96372; 99283; J1170; J1885

== ENCOUNTER 2022-11-18 20:28 | Emergency (ER) | payer OTHER, MEDICAID, SELFPAY ==
[2022-11-18] VITALS (7 sets, daily range): BP systolic 132–152; BP diastolic 86–97; PULSE 64–94; RESP 16; TEMP 37.3; O2SAT 96–99; BMI 35.2
--- NOTE | 2022-11-18 21:09 | ED.BACK ---
HPI - Back Pain/Injury General Chief Complaint: Back Pain/Injury Stated Complaint: Bilat LE weakness Time Seen by Provider: 11/18/22 21:05 Source: patient and EMS Mode of arrival: EMS Limitations: no limitations History of Present Illness HPI Narrative: Patient is a 47-year-old male. Has a longstanding history of lumbar issues. Has had multiple surgeries in the past. His hardware in place. States he did not have any problems until just recently. He states he slipped while walking approximately 2 weeks ago. He did not fall. Since that time he is had increasing issues with discomfort in his back and weakness in his legs and radiation of discomfort down into his legs. Was seen here in the emergency department recently for the symptoms. Was discharged home with steroids. Took the steroids as directed. Thought maybe he has improved with that treatment until this evening who states he had a fairly sudden onset of bilateral lower extremity weakness. He states that he is having some discomfort in his back but it is more weakness. He is not having any fevers. No urinary symptoms. No change in bowel habits. He says it feels like is having some spasming in his lower back. Related Data Previous Rx's Medication Instructions Recorded baclofen 20 mg tablet 20 mg PO TID #21 tabs 02/24/22 oxycodone 5 mg tablet 5 mg PO Q6H PRN pain #14 tabs 08/23/22 hydrocodone 5 mg-acetaminophen 325 1 tab PO Q4-6H PRN pain #20 tabs 11/10/22 mg tablet methylprednisolone 4 mg tablets in See Rx Instructions PO .COMPLEX 11/10/22 a dose pack (Medrol (Ambrose)) #21 ea hydrocodone 5 mg-acetaminophen 325 1 tab PO Q4-6H PRN pain #10 tabs 11/18/22 mg tablet methylprednisolone 4 mg tablets in See Rx Instructions PO .COMPLEX 11/18/22 a dose pack (Medrol (Ambrose)) #21 ea Allergies Allergy/AdvReac Type Severity Reaction Status Date / Time No Known Drug Allergies Allergy Verified 02/24/22 16:42 Review of Systems Constitutional Constitutional: Reports system reviewed and no additional complaints, except as documented Gastrointestinal Gastrointestinal: Reports system reviewed and no additional complaints, except as documented Genitourinary Genitourinary: Reports system reviewed and no additional complaints, except as documented Musculoskeletal Musculoskeletal: Reports system reviewed and no additional complaints, except as documented Integumentary/Breasts Skin/Breast: Reports system reviewed and no additional complaints, except as documented Neurologic Neurologic: Reports system reviewed and no additional complaints, except as documented Hematologic/Lymphatic On Anticoagulants: No Patient History Social History Smoking Status: Never smoker Smoking Status: Never smoker Substance Use Type: does not use Exam Initial Vital Signs Initial Vital Signs: Vital Signs Temperature 99.1 F 11/18/22 20:37 Pulse Rate 94 H 11/18/22 20:37 Respiratory Rate 16 11/18/22 20:37 Blood Pressure 134/91 H 11/18/22 20:37 Pulse Oximetry 97 11/18/22 20:37 Oxygen Delivery Method Room Air 11/18/22 20:37 Back/Spine/Pelvis Thoracic/Lumbar Spine: No paraspinal tenderness, No thoracic spinal tenderness and No lumbar spinal tenderness Skin General: no rashes or lesions noted Neuro General: patient alert, patient awake and moves all extremities Motor: muscle tone normal throughout Extrem General: capillary refill normal Course Orders Ordered: ED Orders 11/18/22 21:10 XR lumbar spine 2-3V Stat Discontinued Medications Hydrocodone Bitart/Acetaminophen (Hydrocodone/Acet 5/325 Prepack) 1 bottle MISC SEEINSTR ONE Stop: 11/18/22 23:31 Last Admin: 11/19/22 00:07 Dose: 1 bottle Documented By: CAESAR Diazepam (Diazepam 5 Mg Tablet) 5 mg PO NOW ONE Stop: 11/18/22 21:11 Last Admin: 11/18/22 21:24 Dose: 5 mg Documented By: CAESAR Prednisone (Prednisone 20 Mg Tablet) 40 mg PO NOW ONE Stop: 11/18/22 23:30 Last Admin: 11/19/22 00:07 Dose: 40 mg Documented By: CAESAR Vital Signs Vital signs: Vital Signs - 8 hr 11/18/22 21:21 11/18/22 21:22 11/18/22 21:22 Pulse Rate 70 68 Blood Pressure 132/87 Pulse Oximetry 99 97 11/18/22 21:30 11/18/22 21:30 11/18/22 22:00 Pulse Rate 78 Blood Pressure 152/93 H 132/86 Pulse Oximetry 96 11/18/22 22:00 11/18/22 22:30 11/18/22 22:30 Pulse Rate 71 66 Blood Pressure 134/86 Pulse Oximetry 96 96 11/18/22 23:00 11/18/22 23:00 Pulse Rate 64 Blood Pressure 143/97 H Pulse Oximetry 96 [facility] - Back Pain/Injury Imaging Data Lumbar x-ray: Radiologist's Impression: PROCEDURE:? XR LUMBAR SPINE 2-3V ? INDICATIONS:? hx of multiple back surgeries with pain after fall ? TECHNIQUE:? 2 views of the lumbar spine were acquired.? ? COMPARISON:? [facility], CR, XR LUMBAR SPINE 2 OR 3 VIEWS, 11/05/2021, 2:31.? [facility], MR, MR LUMBAR SPINE WO CON, 08/23/2022, 20:09. ? FINDINGS:? ? Bones:? 5 [id number] vertebrae are present.? Pedicle screw fixation at L3-S1 appears stable.? Anterolisthesis of L5 on S1, unchanged.? T12 compression fracture, unchanged.? No suspicious bony lesions.? ? Soft tissues:? Overlying bowel gas pattern is normal.? No suspicious soft tissue calcifications.? ? ? IMPRESSION:? Lumbar spine fixation appears stable. T12 compression fracture is unchanged. [facility] Narrative Medical decision making narrative: Patient has subjective weakness to bilateral lower extremities. He is able to lift his legs up off the bed. The x-ray of his lumbar spine shows no acute pathology. The hardware appears to be in place. He is not having any urinary symptoms nor bowel changes. Low suspicion for cauda equina. Low suspicion for fracture. Patient was able to stand use a walker at bedside. Plan will be is to start him back on his steroids as this did seem to help his symptoms. There is no indication for acute surgical intervention or consultation he may require a repeat visit to the spine surgeons to discuss further evaluation or maybe even to see physical therapy but he can see his primary doctor for this. He was given return precautions. He expressed understanding and agreement. Discharge Plan Departure Patient Disposition: Home Clinical Impression: Lumbar strain Instructions: DI for Back Pain With Sciatica Activity Restrictions/Additional Instructions: Recommend that you continue to take all of your medications as directed. You can use the muscle relaxers as needed. I recommend that you talk with your primary doctor or orthopedic provider about further workup of your symptoms. Prescriptions: New methylprednisolone [Medrol (Ambrose)] 4 mg tablets,dose pack See Rx Instructions .ROUTE .COMPLEX Qty: 21 0RF Rx Instructions: orally per package directions hydrocodone-acetaminophen 5-325 mg tablet 1 tab PO Q4-6H PRN (Reason: pain) Qty: 10 0RF No Action oxycodone 5 mg tablet 5 mg PO Q6H PRN (Reason: pain) Qty: 14 0RF hydrocodone-acetaminophen 5-325 mg tablet 1 tab PO Q4-6H PRN (Reason: pain) Qty: 20 0RF methylprednisolone [Medrol (Ambrose)] 4 mg tablets,dose pack See Rx Instructions .ROUTE .COMPLEX Qty: 21 0RF Rx Instructions: orally per package directions baclofen 20 mg tablet 20 mg PO TID Qty: 21 0RF Stand Alone Forms: Patient Portal/API
--- NOTE | 2022-11-18 21:10 | DI.RAD.S_ITS ---
PROCEDURE: XR LUMBAR SPINE 2-3V INDICATIONS: hx of multiple back surgeries with pain after fall TECHNIQUE: 2 views of the lumbar spine were acquired. COMPARISON: [facility], CR, XR LUMBAR SPINE 2 OR 3 VIEWS, 11/05/2021, 2:31. [facility], MR, MR LUMBAR SPINE WO CON, 08/23/2022, 20:09. FINDINGS: Bones: 5 [id number] vertebrae are present. Pedicle screw fixation at L3-S1 appears stable. Anterolisthesis of L5 on S1, unchanged. T12 compression fracture, unchanged. No suspicious bony lesions. Soft tissues: Overlying bowel gas pattern is normal. No suspicious soft tissue calcifications. IMPRESSION: Lumbar spine fixation appears stable. T12 compression fracture is unchanged. Dictated by: Sal Oconnell M.D. on 11/18/2022 at 21:55 Approved by: Sal Oconnell M.D. on 11/18/2022 at 21:57
[2022-11-18] MEDS: diazePAM 5 MG TABLET PO (21:24)
[2022-11-19] MEDS: predniSONE 20 MG TABLET 40 MG PO (00:07)
[2022-11-19] MEDS: HYDROCODONE/ACET 5/325 PREPACK 1 BOTTLE MISC (00:07)
== END 2022-11-19 00:51 | disposition home or self-care (01) ==
PROVIDERS: Emergency Provider Emergency Medicine
DX: S39.012A Strain of muscle, fascia and tendon of lower back, initial encounter (principal); W18.40XA Slipping, tripping and stumbling without falling, unspecified, initial encounter
CPT/HCPCS: 72100; 99283

== ENCOUNTER 2022-11-21 12:43 | Emergency (ER) | payer OTHER, MEDICAID, SELFPAY ==
[2022-11-21 13:07] VITALS: BP 152/108; PULSE 86; RESP 22; TEMP 36.2; O2SAT 97; BMI 35.2
--- NOTE | 2022-11-21 13:16 | ED.BACK ---
HPI - Back Pain/Injury <Caitlyn Woods, [facility] - Last Filed: 11/21/22 16:05> General Chief Complaint: Back Pain/Injury Stated Complaint: back pain worsening visited t-4 Time Seen by Provider: 11/21/22 13:15 Source: patient History of Present Illness HPI Narrative: This is a 47-year-old male with a longstanding history of lumbar issues.?Has had multiple surgeries in the past.?Has hardware in place.? He was here in the emergency department 4 days ago and had lumbar spine x-rays without changes. He had subjective weakness to the lower extremities but was able to lift his legs up off the bed. X-rays did not show acute pathology at the time and hardware was in place. Did not have urinary symptoms or bowel changes and was atraumatic. He completed a steroid pack and was prescribed hydrocodone. He states that he is having a pain crisis, states it is just in his low back. States he had muscle spasms Saturday and Saturday over this weekend but does not have muscle spasms at this time. Is currently on his steroid pack from 4 days ago and states that his pain has not gotten better. He sees [facility] for complicated pain management in [place], [place]. He has seen Dr. Barth in the past, Dr. Babcock from [facility], and is scheduled to see Dr. Storey with [facility] on November 27. He denies urinary frequency, urgency, or retention. Denies point tenderness, fever, stool changes, unilateral weakness or changes. Denies any radicular pain. No changes in his bowels, he is requesting an MRI as he states that when he slipped a few weeks ago on the deck, he had a twisting motion and feels like something is wrong because it is so painful. He takes Lyrica for his pain. Related Data Previous Rx's Medication Instructions Recorded baclofen 20 mg tablet 20 mg PO TID #21 tabs 02/24/22 oxycodone 5 mg tablet 5 mg PO Q6H PRN pain #14 tabs 08/23/22 hydrocodone 5 mg-acetaminophen 325 1 tab PO Q4-6H PRN pain #20 tabs 11/10/22 mg tablet methylprednisolone 4 mg tablets in See Rx Instructions PO .COMPLEX 11/10/22 a dose pack (Medrol (Ambrose)) #21 ea hydrocodone 5 mg-acetaminophen 325 1 tab PO Q4-6H PRN pain #10 tabs 11/18/22 mg tablet methylprednisolone 4 mg tablets in See Rx Instructions PO .COMPLEX 11/18/22 a dose pack (Medrol (Ambrose)) #21 ea lidocaine 5 % topical patch 1 patch topical DAILY #30 ea 11/21/22 (Lidoderm) methocarbamol 750 mg tablet 750 mg PO Q8H PRN muscle pain #30 11/21/22 tabs oxycodone-acetaminophen 5 mg-325 1 tab PO Q6H PRN pain #14 tabs 11/21/22 mg tablet (Endocet) prednisone 20 mg tablet 40 mg PO DAILY 5 days #10 tabs 11/21/22 Allergies Allergy/AdvReac Type Severity Reaction Status Date / Time No Known Drug Allergies Allergy Verified 02/24/22 16:42 Review of Systems <MARY ANN Diez - Last Filed: 11/21/22 16:05> Review of Systems ROS Unobtainable: All systems reviewed & are unremarkable except as noted in HPI and below Patient History <MARY ANN Diez - Last Filed: 11/21/22 16:05> Social History Smoking Status: Never smoker Smoking Status: Never smoker alcohol intake frequency: 0-2 drinks per day Substance Use Type: does not use Exam <MARY ANN Diez - Last Filed: 11/21/22 16:05> Narrative Exam Narrative: Reviewed vitals signs and nursing notes. General: Pleasant, sitting upright, anxious, appears to be in acute distress, well groomed, afebrile HEENT: symmetrical facial expressions, moist mucous membranes, neck is supple CV: regular rate and rhythm, warm extremities Respiratory: normal work of breathing, without tachypnea or hypoxia. GI: abdomen soft, nondistended, without CVA tenderness bilaterally. MSK: moves all extremities, no weakness, normal tone, ambulatory without deficit no focal weakness, nontender to his lumbar spine, paraspinal musculature is tense Skin: brisk capillary refill, without rash or wound Neuro: normal speech and cognition, A&O x3 Initial Vital Signs Initial Vital Signs: Vital Signs Temperature 97.1 F L 11/21/22 13:07 Pulse Rate 86 11/21/22 13:07 Respiratory Rate 22 11/21/22 13:07 Blood Pressure 152/108 H 11/21/22 13:07 Pulse Oximetry 97 11/21/22 13:07 Oxygen Delivery Method Room Air 11/21/22 13:07 <Donavan Hall DO - Last Filed: 11/22/22 06:44> Initial Vital Signs Initial Vital Signs: Vital Signs Temperature 97.1 F L 11/21/22 13:07 Pulse Rate 86 11/21/22 13:07 Respiratory Rate 22 11/21/22 13:07 Blood Pressure 152/108 H 11/21/22 13:07 Pulse Oximetry 97 11/21/22 13:07 Oxygen Delivery Method Room Air 11/21/22 13:07 Course <MARY ANN Diez - Last Filed: 11/21/22 16:05> Orders Ordered: Discontinued Medications Hydromorphone HCl (Hydromorphone 1 Mg Inj) 1 mg IM NOW ONE Stop: 11/21/22 13:36 Last Admin: 11/21/22 13:58 Dose: 1 mg Documented By: ANTIONETTE Ketorolac Tromethamine (Ketorolac 30 Mg/Ml Vial) 30 mg IM NOW ONE Stop: 11/21/22 15:49 Last Admin: 11/21/22 16:00 Dose: 30 mg Documented By: TODD Lidocaine (Lidocaine Patch 1 Each Adh..Patch) 1 each TOP NOW ONE Stop: 11/21/22 13:36 Last Admin: 11/21/22 13:56 Dose: 1 each Documented By: OW Methocarbamol (Methocarbamol 500 Mg Tablet) 750 mg PO NOW ONE Stop: 11/21/22 13:36 Last Admin: 11/21/22 13:55 Dose: 750 mg Documented By: OW Oxycodone/Acetaminophen (Oxycodone/Acetaminophen 5/325 Tablet) 1 tab PO NOW ONE Stop: 11/21/22 14:39 Last Admin: 11/21/22 15:10 Dose: 1 tab Documented By: OW Vital Signs Vital signs: Vital Signs - 8 hr 11/21/22 13:07 Temperature 97.1 F L Pulse Rate 86 Respiratory Rate 22 Blood Pressure 152/108 H Pulse Oximetry 97 Oxygen Delivery Method Room Air <Donavan Hall DO - Last Filed: 11/22/22 06:44> Orders Ordered: Discontinued Medications Hydromorphone HCl (Hydromorphone 1 Mg Inj) 1 mg IM NOW ONE Stop: 11/21/22 13:36 Last Admin: 11/21/22 13:58 Dose: 1 mg Documented By: ANTIONETTE Ketorolac Tromethamine (Ketorolac 30 Mg/Ml Vial) 30 mg IM NOW ONE Stop: 11/21/22 15:49 Last Admin: 11/21/22 16:00 Dose: 30 mg Documented By: TODD Lidocaine (Lidocaine Patch 1 Each Adh..Patch) 1 each TOP NOW ONE Stop: 11/21/22 13:36 Last Admin: 11/21/22 13:56 Dose: 1 each Documented By: ANTIONETTE Methocarbamol (Methocarbamol 500 Mg Tablet) 750 mg PO NOW ONE Stop: 11/21/22 13:36 Last Admin: 11/21/22 13:55 Dose: 750 mg Documented By: ANTIONETTE Oxycodone/Acetaminophen (Oxycodone/Acetaminophen 5/325 Tablet) 1 tab PO NOW ONE Stop: 11/21/22 14:39 Last Admin: 11/21/22 15:10 Dose: 1 tab Documented By: ANTIONETTE Vital Signs Vital signs: Vital Signs - 8 hr 11/21/22 13:07 Temperature 97.1 F L Pulse Rate 86 Respiratory Rate 22 Blood Pressure 152/108 H Pulse Oximetry 97 Oxygen Delivery Method Room Air MDM - Back Pain/Injury <MARYA NN Diez - Last Filed: 11/21/22 16:05> Imaging Data MR Lumbar Spine: Radiologist's Impression: [place] [address] Magnetic Resonance Report Signed Patient: Pa Turner MR#: [id number] : 1975 Acct:[id number] Age/Sex: 47 / M Date of Service: 11/21/22 Loc: ED Accession Number: [id number] ?? Procedure: MR lumbar spine wo con Ordering Provider: Caitlyn Woods PROCEDURE:? MR LUMBAR SPINE WO CON ? INDICATIONS:? New lower extremity weakness, pain exacerbation after twist ? TECHNIQUE:? Noncontrast sagittal T1 spin echo and T2 fast echo, sagittal STIR, and T2 fast spin echo through the lumbar spine.? In cases with scoliosis, additional coronal T2 fast spin echo may be performed.? ? COMPARISON:? [facility], MR, MR LUMBAR SPINE WO CON, 08/23/2022, 20:09. ? FINDINGS:? Image quality:? Excellent.? ? Alignment and Curvature:? There is normal bony alignment.? ? Bone Marrow:? Wedge-shaped compression fracture T12 without marrow edema or change from the prior exam.? No retropulsed fracture fragment. ? L3, L4 and L5 decompressive laminectomies with interbody fusion and posterior yesenia and screw instrumentation also remains unchanged. ? Spinal Cord:? Conus medullaris terminates at the L1 level.? Visualized cord demonstrates normal signal and size.? ? Paraspinous Soft Tissues:? No paravertebral masses.? ? T12-L1:? Disc space is preserved.? No central or foraminal stenosis. ? L1-L2:? Disc space is preserved.? No central or foraminal stenosis ? L2-L3:? Disc space narrowing and circumferential disc bulge results in moderate to severe central stenosis.? Hypertrophic facet joints contribute to moderate bilateral foraminal stenosis ? L3-L4:? Discectomy and fusion with posterior decompression.? No central stenosis.? Mild bilateral foraminal stenosis ? L4-L5:? Discectomy and fusion with posterior decompression.? No central stenosis.? Moderate left and right foraminal stenosis ? L5-S1:? Discectomy and fusion with posterior decompression.? No central stenosis.? Mild -to-moderate bilateral foraminal stenosis ? ? IMPRESSION:? ? Degenerative disc disease and arthropathy results in stable L2-3 moderate to severe central stenosis. ? Lower lumbar spine interbody fusion, posterior decompression and instrumentation, stable from prior exam ? Chronic T12 compression fracture without retropulsed fracture fragment ? Approved by: Tito Obrien M.D. on 11/21/2022 at 14:37? [facility] Narrative Medical decision making narrative: Chief Complaint: low back pain Independent historian: Patient Differential diagnoses include but are not limited to: Hardware malfunction, cauda equina, epidural hematoma, ligamental injury, strain/sprain, muscular spasm, radicular pain, spinal stenosis, osteoarthritis I have independently reviewed the patient's vital signs and nursing notes as well as prior records if available. Pertinent Imaging reviewed: MR lumbar spine without acute abnormality Course of care: Patient's pain was treated with Dilaudid, methocarbamol, lidocaine patch and Percocet tab 1444, patient is currently an MRI receiving his MR scan. Ordered pain pill for additional pain coverage MRI Results without acute abnormality. Patient was provided a copy of his results, understands to follow up with his primary care provider, he was provided contact information for Dr. Storey from [facility] whom he likely has an appointment with on 11/27/[address] Dubois another spinal surgeon for another opinion. His MRI suggests this is arthropathy and degenerative disc disease and patient midline low back pain associated muscle tension. He is not have radicular symptoms today, no focal weakness, without other red flag symptoms and requested a repeat MRI for a twisting injury which occurred approximately 3 weeks ago. Patient understands to follow-up with his pain clinic in [place], who is given contact information for his other prescribers and encouraged to follow-up with them for further care. Social considerations that may affect disposition: none Questions are addressed and there is agreement with the plan and for follow-up. Patient is appropriate for outpatient management. MIPS: This encounter doesn't have any diagnosis' associated with MIPS criteria. Discharge Plan Departure Patient Disposition: Home Clinical Impression: Lumbar back pain, Degenerative disc disease, lumbar, Central stenosis of spinal canal Instructions: DI for Low Back Pain Activity Restrictions/Additional Instructions: *You have been diagnosed with low back pain related to the chronic degenerative disc disease and arthropathy with moderate to severe central canal stenosis. There are no acute changes on your MRI today which is great news. The prior surgeries are stable without abnormality. This is a pain crisis in you may benefit from follow-up with orthopedic surgery or Dr. Barth for pain. Please follow-up with your pain clinic as soon as possible. I have given you a short course of medications to use for the meantime. I will continue your steroids for this week and encourage you to use muscle relaxers for severe pain or if you are having difficulty sleeping. I have given you Percocet instead of hydrocodone this time, please use these only for severe pain and take them with ibuprofen and Tylenol every 6 hours. Use lidocaine patches and multi modes of pain relief to help you achieve better pain control. *What to do: *Please continue to take your regular medications as directed. [ X] New medication prescriptions sent to your pharmacy: [ [facility] [place]] [ ] New medication written as a paper prescription [ ] No new medications given *Please follow up with your primary care provider in 2-3 days, call for an appointment. Let them know you were seen in the Emergency Department and that we asked that you be seen for follow-up. We will electronically transmit a record of today's note if your PCP is in our system *If you do not have a primary care provider please contact [phone] to establish care with one of the [facility] primary care providers. *Return to Emergency Department if you should have any new, worsening, or concerning symptoms, such as [fever greater than 101F, chills, worsening pain, persistent vomiting or other bothersome symptoms]. Prescriptions: New oxycodone-acetaminophen [Endocet] 5-325 mg tablet 1 tab PO Q6H PRN (Reason: pain) Qty: 14 0RF methocarbamol 750 mg tablet 750 mg PO Q8H PRN (Reason: muscle pain) Qty: 30 0RF lidocaine [Lidoderm] 5 % adhesive patch,medicated 1 patch topical DAILY Qty: 30 0RF Rx Instructions: leave on most painful area for up to 12 hrs prednisone 20 mg tablet 40 mg PO DAILY 5 Days Qty: 10 0RF No Action oxycodone 5 mg tablet 5 mg PO Q6H PRN (Reason: pain) Qty: 14 0RF hydrocodone-acetaminophen 5-325 mg tablet 1 tab PO Q4-6H PRN (Reason: pain) Qty: 20 0RF methylprednisolone [Medrol (Ambrose)] 4 mg tablets,dose pack See Rx Instructions .ROUTE .COMPLEX Qty: 21 0RF Rx Instructions: orally per package directions baclofen 20 mg tablet 20 mg PO TID Qty: 21 0RF methylprednisolone [Medrol (Ambrose)] 4 mg tablets,dose pack See Rx Instructions .ROUTE .COMPLEX Qty: 21 0RF Rx Instructions: orally per package directions hydrocodone-acetaminophen 5-325 mg tablet 1 tab PO Q4-6H PRN (Reason: pain) Qty: 10 0RF Referrals: [facility] [Provider Group] Josy Storey MD [Physician] - Sedrick Valdivia MD [Physician] - Stand Alone Forms: Patient Portal/API <Donavan Hall DO - Last Filed: 11/22/22 06:44> Cosign ED Attending Cosignature Attestation: I was immediately available in the department for consultation. Documentation has been reviewed. I agree with assessment and plan.
--- NOTE | 2022-11-21 13:35 | DI.MRI.S_ITS ---
PROCEDURE: MR LUMBAR SPINE WO CON INDICATIONS: New lower extremity weakness, pain exacerbation after twist TECHNIQUE: Noncontrast sagittal T1 spin echo and T2 fast echo, sagittal STIR, and T2 fast spin echo through the lumbar spine. In cases with scoliosis, additional coronal T2 fast spin echo may be performed. COMPARISON: [facility], MR, MR LUMBAR SPINE WO CON, 08/23/2022, 20:09. FINDINGS: Image quality: Excellent. Alignment and Curvature: There is normal bony alignment. Bone Marrow: Wedge-shaped compression fracture T12 without marrow edema or change from the prior exam. No retropulsed fracture fragment. L3, L4 and L5 decompressive laminectomies with interbody fusion and posterior yesenia and screw instrumentation also remains unchanged. Spinal Cord: Conus medullaris terminates at the L1 level. Visualized cord demonstrates normal signal and size. Paraspinous Soft Tissues: No paravertebral masses. T12-L1: Disc space is preserved. No central or foraminal stenosis. L1-L2: Disc space is preserved. No central or foraminal stenosis L2-L3: Disc space narrowing and circumferential disc bulge results in moderate to severe central stenosis. Hypertrophic facet joints contribute to moderate bilateral foraminal stenosis L3-L4: Discectomy and fusion with posterior decompression. No central stenosis. Mild bilateral foraminal stenosis L4-L5: Discectomy and fusion with posterior decompression. No central stenosis. Moderate left and right foraminal stenosis L5-S1: Discectomy and fusion with posterior decompression. No central stenosis. Mild -to-moderate bilateral foraminal stenosis IMPRESSION: Degenerative disc disease and arthropathy results in stable L2-3 moderate to severe central stenosis. Lower lumbar spine interbody fusion, posterior decompression and instrumentation, stable from prior exam Chronic T12 compression fracture without retropulsed fracture fragment Approved by: Tito Obrien M.D. on 11/21/2022 at 14:37
[2022-11-21] MEDS: methocarbamoL 500 MG TABLET 750 MG PO (13:55)
[2022-11-21] MEDS: LIDOCAINE PATCH 1 EACH ADH..PATCH TOP (13:56)
[2022-11-21] MEDS: HYDROMORPHONE 1 MG INJ IM (13:58)
[2022-11-21] MEDS: OXYCODONE/ACETAMINOPHEN 5/325 TABLET 1 TAB PO (15:10)
[2022-11-21] MEDS: KETOROLAC 30 MG/ML VIAL IM (16:00)
[2022-11-21 16:17] VITALS: BP 141/89; PULSE 72; RESP 18; O2SAT 97
== END 2022-11-21 16:18 | disposition home or self-care (01) ==
PROVIDERS: Emergency Provider Nurse Practitioner Critical Care Medicine
DX: M51.36 Other intervertebral disc degeneration, lumbar region (principal); M48.061 Spinal stenosis, lumbar region without neurogenic claudication
CPT/HCPCS: 72148; 96372; 99283; J1170; J1885

== ENCOUNTER 2022-12-06 11:13 | Outpatient (CLI) | payer OTHER, MEDICAID, SELFPAY ==
--- NOTE | 2022-12-06 11:15 | DI.RAD.S_ITS ---
PROCEDURE: PAIN L/S TRANSFORAM INJECT CRISTOFER COMPARISON: None. INDICATIONS: LUMBAR RADICULOPATHY FINDINGS: Fluoroscopic images demonstrate injection at the levels of the S1 facet joints. IMPRESSION: S1 facet joint injection. Dictated by: Sharla Parker M.D. on 12/06/2022 at 14:42 Approved by: Sharla Parker M.D. on 12/06/2022 at 14:42
[2022-12-06 11:20] VITALS: BP 123/73; PULSE 77; RESP 18; TEMP 36.2; O2SAT 98
[2022-12-06 11:30] VITALS: BP 132/84; PULSE 64; RESP 18; O2SAT 97
[2022-12-06] MEDS: DEXAMETHASONE 10 MG/ML VIAL 20 MG INJ (11:32)
[2022-12-06] MEDS: IOPAMIDOL 15 ML VIAL 3 ML INJ (11:32)
[2022-12-06] MEDS: BUPIVACAINE 0.25% (PF) VIAL 5 ML SUBCUT (11:33)
[2022-12-06 11:35] VITALS: BP 131/79; PULSE 67; RESP 18; O2SAT 97
[2022-12-06 11:40] VITALS: BP 120/71; PULSE 63; RESP 16; O2SAT 96
[2022-12-06 11:44] VITALS: BP 124/78; PULSE 60; RESP 18; O2SAT 96
[2022-12-06 11:48] VITALS: BP 129/87; PULSE 70; RESP 18; O2SAT 99
--- NOTE | 2022-12-06 11:56 | P.PCN_ITS ---
Date/Time/Diagnoses Date of procedure: 12/06/22 Time of procedure: 11:30 Procedure Notes Physician: Jose R iKm Total Fluoroscopy time (seconds): 28 Total sedation minutes: 0 Procedure in detail & Post-procedure care: Bilateral S1 Transforaminal Epidural Steroid Injection Indications: Pa is presenting for treatment of lumbosacral radiculopathy with low back and leg pain. Preoperative diagnosis: Bilateral lumbosacral radiculopathy Postoperative diagnosis: Same Focused Examination: Ax3 Mood and affect are normal Vital Signs: VSS ASA: 2 Consent: Following review of allergies and potential side effects/complications, including, but not necessarily limited to, infection, allergic reaction, local tissue breakdown, stroke, temporary or permanent nerve injury, paralysis, and possible , the patient indicated that they understood and agreed to proceed.? An informed consent document was signed by the patient, witnessed by a nurse and placed in the patient's chart.? Additionally, other treatment options including medications and physical therapy were reviewed with the patient. All questions were answered. Site was then marked. Anesthesia: Local Position: Prone Monitoring: NIBP, Pulse oximetry, 3 lead EKG Needle used: 22G, 3.5 inch spinal needle Contrast: Isovue 300M Injectate: 10 mg Dexamethasone mixed with 0.25% bupivacaine 1 ml and Normal Saline 1 ml per site Technique: The skin was prepped with chloraprep and draped in a sterile fashion. Time out was performed as per protocol. Oxygen applied via NC. Skin and subcutaneous structures of the needle entry site were infiltrated with 3mL of lidocaine 1%. Under fluoroscopic guidance, using an ipsilateral oblique view,?a 22 gauge 3.5 inch needle was advanced to the superolateral border of the right S1 foramen.? The needle was advanced to the superolateral aspect of the neural foramen under lateral view.?AP views were rechecked. No paresthesias noted by the patient during needle placement. In AP view and utilizing real-time digital subtraction fluoroscopy, 2 ml contrast was slowly injected. Epidural spread was observed without evidence for intravascular nor intrathecal uptake. The above injectate was then administered, and the needle was subsequently withdrawn. Above procedure was then repeated for the left S1 foramen. Band-Aids applied to injection sites. EBL: less than 1 ml Complications: None Post Procedure: Patient was taken to the recovery and monitored. The patient was provided a Pain Log to continue to record the patient's response to the target- specific procedure prior to the patient's follow-up visit with the referring physician. Patient was stable upon discharge. Detailed post procedure instructions were provided. Patient was asked to call in the event of worsening pain, fever, weakness, numbness or bladder or bowel incontinence.
== END 2022-12-06 11:30 | disposition home or self-care (01) ==
PROVIDERS: Referring Provider Anesthesiology; Visit Provider Anesthesiology
DX: M54.17 Radiculopathy, lumbosacral region (principal)
CPT/HCPCS: 64483; J1100

== ENCOUNTER 2022-12-07 21:43 | Emergency (ER) | payer OTHER, MEDICAID, SELFPAY ==
[2022-12-07 22:18] VITALS: BP 130/86; PULSE 98; RESP 20; TEMP 36.7; O2SAT 98; BMI 33.0
[2022-12-08] VITALS (12 sets, daily range): BP systolic 105–128; BP diastolic 68–91; PULSE 56–90; RESP 18–20; O2SAT 94–100
--- NOTE | 2022-12-08 04:15 | ED.BACK ---
HPI - Back Pain/Injury General Chief Complaint: Back Pain/Injury Stated Complaint: Back pain Time Seen by Provider: 12/08/22 04:15 Source: patient History of Present Illness HPI Narrative: Patient is a 47-year-old male who has acute on chronic back pain. He says that he is had 4 back surgerys. He actually had an MRI without contrast in the emergency department with show degenerative disc disease and severe central canal stenosis at L2-L3. He was seen by pain management on December 06 when he had a epidural steroid injection. Patient is complaining of left flank pain. No change in bowel or bladder habits he no leg weakness. He says that he was given oxycodone he still has a couple home he is only taking 1 time it does not seem to be working. He has been sleeping department for a number of hours Related Data Home Medications Medication Instructions Recorded Confirmed duloxetine 60 mg capsule,delayed 60 mg PO DAILY 11/28/22 11/28/22 release omeprazole 20 mg capsule,delayed 20 mg PO DAILY 11/28/22 11/28/22 release pregabalin 200 mg capsule 200 mg PO TID 11/28/22 11/28/22 Previous Rx's Medication Instructions Recorded methocarbamol 750 mg tablet 750 mg PO Q8H PRN muscle pain #30 11/21/22 tabs lidocaine 5 % topical patch 1 patch topical DAILY #30 ea 11/28/22 (Lidoderm) tramadol 50 mg tablet 50 mg PO TID PRN pain #30 tabs 11/28/22 Allergies Allergy/AdvReac Type Severity Reaction Status Date / Time milk Allergy Mild Verified 12/07/22 22:24 Review of Systems Review of Systems ROS Unobtainable: All systems reviewed & are unremarkable except as noted in HPI and below Patient History Medical History Lumbar radiculopathy Social History Smoking Status: Never smoker Smoking Status: Never smoker alcohol intake frequency: 0-2 drinks per day Substance Use Type: does not use Exam Initial Vital Signs Initial Vital Signs: Vital Signs Temperature 98.1 F 12/07/22 22:18 Pulse Rate 98 H 12/07/22 22:18 Respiratory Rate 20 12/07/22 22:18 Blood Pressure 130/86 12/07/22 22:18 Pulse Oximetry 98 12/07/22 22:18 Oxygen Delivery Method Room Air 12/07/22 22:18 GENERAL: Alert 47 year sleeping easily arousable CARDIOVASCULAR: peripheral pulses in tact, cap refill <2 sec RESPIRATORY: No respiratory distress, speaks in full sentences without difficulty BACK: No vertebral tenderness no step-off he is having left flank paraspinal pain. EXTREMITIES: Normal range of motion, no clubbing or edema. Neurovascularly intact sensation in lower extremities intact NEUROLOGICAL: Cranial nerves II through XII grossly intact. Normal gait and speech. SKIN: Warm, dry, no petechiae, no rashes or lesions. Course Orders Ordered: Discontinued Medications Hydromorphone HCl (Hydromorphone 1 Mg Inj) 1 mg IV NOW ONE Stop: 12/08/22 04:21 Hydromorphone HCl (Hydromorphone 1 Mg Inj) 1 mg IM NOW ONE Stop: 12/08/22 04:26 Last Admin: 12/08/22 04:30 Dose: 1 mg Documented By: HNG Vital Signs Vital signs: Vital Signs - 8 hr 12/08/22 00:31 12/08/22 01:53 12/08/22 01:56 Pulse Rate 90 65 Respiratory Rate 20 Blood Pressure 123/82 117/91 H Pulse Oximetry 99 94 Oxygen Delivery Method Room Air 12/08/22 01:56 12/08/22 02:00 12/08/22 02:00 Pulse Rate 73 73 Respiratory Rate Blood Pressure 118/91 H Pulse Oximetry 100 100 Oxygen Delivery Method Room Air 12/08/22 02:30 12/08/22 02:30 12/08/22 03:00 Pulse Rate 67 Respiratory Rate Blood Pressure 125/81 105/71 Pulse Oximetry 99 Oxygen Delivery Method Room Air 12/08/22 03:00 12/08/22 03:30 12/08/22 03:30 Pulse Rate 57 L 60 Respiratory Rate 18 Blood Pressure 115/69 Pulse Oximetry 97 97 Oxygen Delivery Method Room Air 12/08/22 04:00 12/08/22 04:00 12/08/22 04:30 Pulse Rate 56 L 68 Respiratory Rate Blood Pressure 115/72 Pulse Oximetry 99 99 Oxygen Delivery Method Room Air 12/08/22 04:31 12/08/22 04:31 12/08/22 05:00 Pulse Rate 62 57 L Respiratory Rate Blood Pressure 128/88 Pulse Oximetry 100 100 Oxygen Delivery Method Room Air 12/08/22 05:01 12/08/22 05:01 Pulse Rate 62 Respiratory Rate Blood Pressure 118/68 Pulse Oximetry 100 Oxygen Delivery Method MDM - Back Pain/Injury MDM Narrative Medical decision making narrative: Patient 39-year-old male with acute on chronic back pain with recent epidural injection on December 06. He has no neurologic deficits no saddle anesthesia no urinary continence and no fever. This is unlikely to be epidural hematoma or abscess. He has some pain medication at home he is requesting some more. We did have a conversation how he will have to talk to his primary care or pain management. He is requesting a shot of Dilaudid which he received previously and that seemed to help the most. Discharge Plan Departure Patient Disposition: Home Clinical Impression: Lumbar radiculopathy Instructions: DI for Low Back Pain Activity Restrictions/Additional Instructions: *You have been diagnosed with lumbar radiculopathy *What to do: At this time you will need to follow-up with pain management in regards to your pain medication. No prescription will be filled today but you did get 1 check of Dilaudid. I hope that this helps makes you feel better. Please follow-up with orthopedics as well *Continue to take medications as directed *Follow up with your primary care provider in 2-3 days or call [phone] *Return to ER if you should have increasing pain fever weakness in legs loss of urine or stool or any new, worsening or concerning symptoms Prescriptions: No Action methocarbamol 750 mg tablet 750 mg PO Q8H PRN (Reason: muscle pain) Qty: 30 0RF pregabalin 200 mg capsule 200 mg PO TID Patient Comments: TAKE ONE CAPSULE BY MOUTH THREE TIMES DAILY omeprazole 20 mg capsule,delayed release(DR/EC) 20 mg PO DAILY duloxetine 60 mg capsule,delayed release(DR/EC) 60 mg PO DAILY tramadol 50 mg tablet 50 mg PO TID PRN (Reason: pain) Qty: 30 1RF lidocaine [Lidoderm] 5 % adhesive patch,medicated 1 patch topical DAILY Qty: 30 0RF Rx Instructions: leave on most painful area for up to 12 hrs Referrals: Jose R Kim MD [Physician] - Miscellaneous,MD Silvio [Primary Care Provider] - Stand Alone Forms: Patient Portal/API
[2022-12-08] MEDS: HYDROMORPHONE 1 MG INJ IM (04:30)
== END 2022-12-08 05:09 | disposition home or self-care (01) ==
PROVIDERS: Emergency Provider Emergency Medicine
DX: M54.16 Radiculopathy, lumbar region (principal)
CPT/HCPCS: 96372; 99283; J1170

== ENCOUNTER 2022-12-12 18:42 | Emergency (ER) | payer OTHER, MEDICAID, SELFPAY ==
[2022-12-12 18:50] VITALS: PULSE 107; RESP 18; TEMP 36.5; O2SAT 99; BMI 33.6
--- NOTE | 2022-12-12 18:55 | DI.MRI.S_ITS ---
PROCEDURE: MR LUMBAR SPINE WO CON INDICATIONS: know lumbar disease, had injection 1 week ago, left leg numb TECHNIQUE: Noncontrast sagittal T1 spin echo and T2 fast echo, sagittal STIR, and T2 fast spin echo through the lumbar spine. In cases with scoliosis, additional coronal T2 fast spin echo may be performed. COMPARISON: [facility], CR, XR LUMBAR SPINE 2-3V, 11/18/2022, 21:08. [facility], MR, MR LUMBAR SPINE WO CON, 11/21/2022, 14:37. FINDINGS: Image quality: Degraded by metallic artifact. Alignment and Curvature: 5 lumbar type vertebral bodies are present by plain film. 2 mm of retrolisthesis of L1 on L2, L2 on L3, and L3 on L4. Bone Marrow: Marrow is of normal overall signal. No acute vertebral body compression fractures. Posterior fusion hardware at L3-S1. Mild reactive signal throughout the endplates of the lumbar and lower thoracic spine. Moderate chronic wedging of T12. Spinal Cord: Conus medullaris terminates at the mid L1 level. Visualized cord demonstrates normal signal and size. Paraspinous Soft Tissues: No paravertebral masses. T11-T12: Mild retropulsion at the superior T12 level. Moderate disc height loss and desiccation. Mild diffuse disc bulge. Moderate canal stenosis. Mild cord flattening. Mild bilateral foraminal stenosis. No significant change. T12-L1: Mild disc height loss and desiccation. No significant canal nor foraminal stenosis. L1-L2: Mild disc height loss and desiccation. Mild facet and ligamentum flavum hypertrophy. Mild canal stenosis. Mild bilateral foraminal stenosis. No significant change. L2-L3: Mild disc height loss. Moderate disc desiccation. Mild diffuse disc bulge. Mild facet and ligamentum flavum hypertrophy. Severe canal stenosis. Moderate bilateral foraminal stenosis. No significant change. L3-L4: Posterior fusion. Interbody device. Mild diffuse disc bulge. Mild bilateral facet hypertrophy. Mild canal stenosis. Moderate bilateral foraminal stenosis. No significant change. L4-L5: Posterior fusion. Interbody device. Mild bilateral facet hypertrophy. Mild diffuse disc bulge/osteophyte. Mild canal stenosis. Moderate bilateral foraminal stenosis. No significant change. L5-S1: Posterior fusion. Interbody device placement. Mild bilateral facet hypertrophy. No significant canal stenosis. Moderate bilateral foraminal stenosis. No significant change. IMPRESSION: 1. No acute process. 2. No interval change compared to MRI dated 11/21/2022. 3. Multilevel degenerative disc and facet disease, as well as ligamentum flavum hypertrophy and epidural lipomatosis. 4. Postsurgical sequelae. 5. Multilevel canal stenoses, worst at L2-L3 where there is severe canal stenosis, and at T11-T12 where there is mild cord flattening. 6. Multilevel moderate foraminal stenosis as described above. 7. Moderate chronic T12 compression fracture. Dictated by: Becky Ohara M.D. on 12/12/2022 at 19:26 Approved by: Becky Ohara M.D. on 12/12/2022 at 19:30
--- NOTE | 2022-12-12 18:55 | ED.BACK ---
HPI - Back Pain/Injury General Chief Complaint: Back Pain/Injury Stated Complaint: Back pain causing issues with L leg/foot, numbness Time Seen by Provider: 12/12/22 18:55 Source: patient Mode of arrival: Ambulatory Limitations: no limitations History of Present Illness HPI Narrative: This is a 47 year old male with history of back surgery x [address] Martinez for neurosurgery at [place]. Patient states he is had back pain on and off longstanding. He is had intermittent paresthesias and has had chronic foot drop on his left leg foot for some time. Patient had an injection on his back with Dr. Kim on 12/06 4 bilateral lumbosacral radiculopathy. Patient states at that time they had nerve had significant increased pain and since then has had increased numbness into his left leg below the knee more over the calf and over the dorsum of the foot. Patient states foot drop as worsened he is able to ambulate and walk normally. States he has some chronic paresthesias in his right leg but not significantly worsened. He denies any saddle anesthesia, no loss of bowel or bladder control. No weakness he has been able to ambulate. He takes Soma intermittently, oxycodone for pain control and Tylenol and has been on a dexamethasone taper in his on day 3 or 4 and should be taking 3 tablets of dexamethasone today. He states he is had steroids in the past they have not been as helpful. He reached out his neurosurgeon they recommended he had MRI, he states it was ordered as an outpatient but he presented to the ED. MRI was obtained. Patient did have a dose of his typical pain medication here in the department. Related Data Home Medications Medication Instructions Recorded Confirmed duloxetine 60 mg capsule,delayed 60 mg PO DAILY 11/28/22 11/28/22 release omeprazole 20 mg capsule,delayed 20 mg PO DAILY 11/28/22 11/28/22 release pregabalin 200 mg capsule 200 mg PO TID 11/28/22 11/28/22 Previous Rx's Medication Instructions Recorded methocarbamol 750 mg tablet 750 mg PO Q8H PRN muscle pain #30 11/21/22 tabs lidocaine 5 % topical patch 1 patch topical DAILY #30 ea 11/28/22 (Lidoderm) tramadol 50 mg tablet 50 mg PO TID PRN pain #30 tabs 11/28/22 oxycodone 5 mg tablet 5 mg PO Q6H PRN pain #10 tabs 12/13/22 oxycodone 5 mg tablet 5 mg PO Q6H PRN pain #14 tabs 12/13/22 Allergies Allergy/AdvReac Type Severity Reaction Status Date / Time milk Allergy Mild Verified 12/07/22 22:24 Review of Systems Review of Systems ROS Unobtainable: All systems reviewed & are unremarkable except as noted in HPI and below Patient History Medical History Lumbar radiculopathy Social History Smoking Status: Never smoker Smoking Status: Never smoker alcohol intake frequency: 0-2 drinks per day Substance Use Type: does not use Exam Narrative Exam Narrative: GENERAL: Alert and oriented x three, male in mild distress HEENT: Head normocephalic, atraumatic, EOMI, pupils reactive, face symmetric, moist mucous membranes NECK: Supple, full range of motion CARDIOVASCULAR: Regular rate and rhythm without murmurs, rubs or gallops. RESPIRATORY: Breath sounds equal bilaterally, no wheezes rales or rhonchi. ABDOMEN: Soft, nontender. Normoactive bowel sounds all 4 quadrants. No guarding or rebound, rigidity, no mass : No CVA tenderness BACK: No cervical, thoracic or lumbar vertebral point tenderness. Patient has healed incisions which are clean dry and intact without any warmth, erythema or swelling. Patient has normal range of motion. Patient's gait is normal. Rectal exam is deferred. Muscle strength is 5/5 in lower extremities, DTRs are 2/4 and lower extremities. Dorsalis pedis and tibialis pulses are 2+ and lower extremities. Sensation is intact in the lower extremities, but decreased left in comparison to right. EXTREMITIES: Normal range of motion, no clubbing or edema. Neurovascularly intact NEUROLOGICAL: Cranial nerves II through XII grossly intact. Moving all extremities SKIN: Warm, dry, no petechiae, no rashes or lesions. Initial Vital Signs Initial Vital Signs: Vital Signs Temperature 97.7 F 12/12/22 18:50 Pulse Rate 107 H 12/12/22 18:50 Respiratory Rate 18 12/12/22 18:50 Pulse Oximetry 99 12/12/22 18:50 Oxygen Delivery Method Room Air 12/12/22 18:50 Course Orders Ordered: Discontinued Medications Oxycodone/Acetaminophen (Oxycodone/Acetaminophen 5/325 Tablet) 2 tab PO NOW ONE Stop: 12/13/22 00:01 Last Admin: 12/13/22 00:13 Dose: 2 tab Documented By: PATEL Oxycodone/Acetaminophen (Oxycodone/Acetaminophen 5/325 Tablet) 2 tab PO NOW ONE Stop: 12/13/22 03:45 Last Admin: 12/13/22 03:49 Dose: 2 tab Documented By: BS Consultations Consultation #1: [place] [facility], for Dr. Martinez Vital Signs Vital signs: Vital Signs - 8 hr 12/13/22 03:54 Pulse Rate 66 Respiratory Rate 16 Blood Pressure 131/89 Pulse Oximetry 98 Oxygen Delivery Method Room Air MDM - Back Pain/Injury Imaging Data MRI Lumbar: Radiologist's Impression: Close Lumbar Spine MRI (Signed) Becky Ohara - 12/12/22 LS Transforaminal Injection (Signed) Sharla Parker - 12/06/22 Lumbar Spine MRI (Signed) Tito Obrien - 11/21/22 Lumbar Spine X-Ray (Signed) Sal Oconnell - 11/18/22 Lumbar Spine MRI (Signed) Farzad Vidales - 08/23/22 Lumbar Spine MRI (Signed) Tito Obrien - 02/24/22 Launch?[place] [address] Magnetic Resonance Report Signed Patient: Pa Turner MR#: [id number] : 1975 Acct:[id number] Age/Sex: 47 / M Date of Service: 12/12/22 Loc: ED Accession Number: [id number] ?? Procedure: MR lumbar spine wo con Ordering Provider: Mireille Blevins D.O. PROCEDURE:? MR LUMBAR SPINE WO CON ? INDICATIONS:? know lumbar disease, had injection 1 week ago, left leg numb ? TECHNIQUE:? Noncontrast sagittal T1 spin echo and T2 fast echo, sagittal STIR, and T2 fast spin echo through the lumbar spine.? In cases with scoliosis, additional coronal T2 fast spin echo may be performed.? ? COMPARISON:? [facility], CR, XR LUMBAR SPINE 2-3V, 11/18/2022, 21:08.? [facility], MR, MR LUMBAR SPINE WO CON, 11/21/2022, 14:37. ? FINDINGS:? Image quality:? Degraded by metallic artifact. ? Alignment and Curvature:? 5 lumbar type vertebral bodies are present by plain film.? 2 mm of retrolisthesis of L1 on L2, L2 on L3, and L3 on L4. ? Bone Marrow:? Marrow is of normal overall signal.? No acute vertebral body compression fractures.? Posterior fusion hardware at L3-S1.? Mild reactive signal throughout the endplates of the lumbar and lower thoracic spine.? Moderate chronic wedging of T12. ? Spinal Cord:? Conus medullaris terminates at the mid L1 level.? Visualized cord demonstrates normal signal and size.? ? Paraspinous Soft Tissues:? No paravertebral masses.? ? T11-T12:? Mild retropulsion at the superior T12 level.? Moderate disc height loss and desiccation.? Mild diffuse disc bulge.? Moderate canal stenosis.? Mild cord flattening.? Mild bilateral foraminal stenosis.? No significant change. ? T12-L1:? Mild disc height loss and desiccation.? No significant canal nor foraminal stenosis. ? L1-L2:? Mild disc height loss and desiccation.? Mild facet and ligamentum flavum hypertrophy.? Mild canal stenosis.? Mild bilateral foraminal stenosis.? No significant change. ? L2-L3:? Mild disc height loss.? Moderate disc desiccation.? Mild diffuse disc bulge.? Mild facet and ligamentum flavum hypertrophy.? Severe canal stenosis.? Moderate bilateral foraminal stenosis.? No significant change. ? L3-L4:? Posterior fusion.? Interbody device.? Mild diffuse disc bulge.? Mild bilateral facet hypertrophy.? Mild canal stenosis.? Moderate bilateral foraminal stenosis.? No significant change. ? L4-L5:? Posterior fusion.? Interbody device.? Mild bilateral facet hypertrophy.? Mild diffuse disc bulge/osteophyte.? Mild canal stenosis.? Moderate bilateral foraminal stenosis.? No significant change. ? L5-S1:? Posterior fusion.? Interbody device placement.? Mild bilateral facet hypertrophy. ?No significant canal stenosis.? Moderate bilateral foraminal stenosis.? No significant change. ? ? IMPRESSION:? 1. No acute process. 2. No interval change compared to MRI dated 11/21/2022. 3. Multilevel degenerative disc and facet disease, as well as ligamentum flavum hypertrophy and epidural lipomatosis. 4. Postsurgical sequelae. 5. Multilevel canal stenoses, worst at L2-L3 where there is severe canal stenosis, and at T11-T12 where there is mild cord flattening. 6. Multilevel moderate foraminal stenosis as described above. 7. Moderate chronic T12 compression fracture.? Dictated by: Becky Ohara M.D. on 12/12/2022 at 19:26 ? ? Approved by: Becky Ohara M.D. on 12/12/2022 at 19:30?? MDM Narrative Medical decision making narrative: This is a 47-year-old male with acute on chronic paresthesias and states he is noticed significant change or increase of numbness below the left calf down towards his foot. He states normal movement, no incontinence or other changes consistent with cauda equina. Which does show multilevel canal stenosis worst at L2-L3 where there is severe stenosis and T11-T12 with mild cord flattening but no acute interval change from 11/21/2022 MRI. Patient does have ligamentum flavum hypertrophy and epidural lipomatosis. Multilevel moderate foraminal stenosis and moderate chronic T12 compression fracture. My suspicion for active cauda equina is much lower but patient does have significant change. He was in contact with his neurosurgeon earlier today reached out to his neurosurgery team. Called [place] several times to speak with patients neurosurgery team. Have not heard back. Images were pushed several times. Discussed with patient he feels comfortable returning home he does not. Patient has decreased sensation below the knee down his foot but has normal movement, ambulation with no other cauda equina changes and patient and I both feel he is appropriate for discharge. He was given a disc of his images and he is going to call his team 1st thing this morning. Dr. Zaragoza at [facility] called back for Dr. Rizo, he review patient's images, he is familiar with the patient they had a recent visit in the last 1-2 days at their local ER patient apparently has a appointment today at the office he recommends that he be seen or call if he can not make his appointment today to be seen shortly. He does not recommend emergent surgery tonight or any other emergent interventions this evening. Discharge Plan Departure Patient Disposition: Home Clinical Impression: Lumbar radiculopathy Activity Restrictions/Additional Instructions: Follow-up with your neurosurgery team, call first thing this morning. Please take the disc of images with you. Continue your current medications. Prescription for additional pain medication was sent to [facility] in [place]. This medication can make you sleepy do not drive, perform hazardous activities or make any major decisions while taking it. This medication will make you constipated please take a stool softener once to twice daily until stools are soft and regular. Please return for new or worsening weakness, numbness, loss of bowel or bladder control, numbness in the groin area, fevers, warmth erythema or other skin changes over the back or other new or concerning changes. Prescriptions: New oxycodone 5 mg tablet 5 mg PO Q6H PRN (Reason: pain) Qty: 14 0RF oxycodone 5 mg tablet 5 mg PO Q6H PRN (Reason: pain) Qty: 10 0RF No Action methocarbamol 750 mg tablet 750 mg PO Q8H PRN (Reason: muscle pain) Qty: 30 0RF pregabalin 200 mg capsule 200 mg PO TID Patient Comments: TAKE ONE CAPSULE BY MOUTH THREE TIMES DAILY omeprazole 20 mg capsule,delayed release(DR/EC) 20 mg PO DAILY duloxetine 60 mg capsule,delayed release(DR/EC) 60 mg PO DAILY tramadol 50 mg tablet 50 mg PO TID PRN (Reason: pain) Qty: 30 1RF lidocaine [Lidoderm] 5 % adhesive patch,medicated 1 patch topical DAILY Qty: 30 0RF Rx Instructions: leave on most painful area for up to 12 hrs Referrals: Miscellaneous,Doctor, MD [Primary Care Provider] - Stand Alone Forms: Patient Portal/API
[2022-12-13] MEDS: OXYCODONE/ACETAMINOPHEN 5/325 TABLET 2 TAB PO ×2 (00:13→03:49)
[2022-12-13 03:54] VITALS: BP 131/89; PULSE 66; RESP 16; O2SAT 98
== END 2022-12-13 03:55 | disposition home or self-care (01) ==
PROVIDERS: Emergency Provider Emergency Medicine
DX: M54.16 Radiculopathy, lumbar region (principal)
CPT/HCPCS: 72148; 99283

== ENCOUNTER 2022-12-19 19:43 | Emergency (ER) | payer OTHER, MEDICAID, SELFPAY ==
[2022-12-19 19:49] VITALS: BP 149/101; PULSE 102; RESP 18; TEMP 36.4; O2SAT 99; BMI 33.9
--- NOTE | 2022-12-19 20:00 | PC.NURSE ---
Pt reports that about 1.5months ago he slipped on ice, he did not fall but did tweak his back. He has had a lower back surgery with hardware installed. Pt has been to see a neurosurgeon and is planning on surgery. Pt has a recent MRI here at . Pt reports that in past 48 hours he has been having a pinching pain, he is taking Lyrica, tramadol and muscle relaxer with minimal to no relief. Last dose of tramadol was 1600, last muscle relaxer was 2100 yesterday. Pt states that he has not been able to sleep due to the pain. He is hoping for some relief.
[2022-12-19 22:00] VITALS: BP 162/90; PULSE 80; RESP 18; O2SAT 98
[2022-12-20 00:53] VITALS: BP 138/95; PULSE 84; RESP 18; O2SAT 98
--- NOTE | 2022-12-20 01:00 | ED.BACK ---
HPI - Back Pain/Injury General Chief Complaint: Back Pain/Injury Stated Complaint: BACK PAIN Time Seen by Provider: 12/19/22 19:56 Source: patient History of Present Illness HPI Narrative: 47-year-old gentleman with history of significant back pain, 3 spine surgeries, progressive paresthesias and weakness worse on the left side followed at [facility] by Dr. Martinez, surgery is scheduled in the next 4-6 weeks for this issue. He is having increasing pain and numbness on the left side, reports that he has not been able sleep for the last 48 hours secondary to pain and today is noticing pain radiating down the right leg with muscle cramping just above his knee and slight decreased sensation over the dorsum of his foot. Describes no fevers, cough, chills. He did have an epidural steroid injection approximately 2 weeks ago and was seen with pain complaints in this emergency department on December 12. At that point an MRI of the lumbar spine was done that did not show epidural abscess or infection but did suggest significant pathology that is consistent with plans for upcoming surgery. In the meantime, the patient is incredibly uncomfortable and requesting help with pain control to try and get back to a bit of sleep. He currently is taking tramadol Lyrica and Tylenol. On December 14 he was given dexamethasone taper. He is had steroid tapers and number of times notes that it really has not been effective with any of them. Tried Toradol a number of times and notes that too has not been particularly effective. Had a gastric bypass and can not use nonsteroidals on a regular basis. Related Data Home Medications Medication Instructions Recorded Confirmed duloxetine 60 mg capsule,delayed 60 mg PO DAILY 11/28/22 12/17/22 release omeprazole 20 mg capsule,delayed 20 mg PO DAILY 11/28/22 12/17/22 release pregabalin 200 mg capsule 200 mg PO TID 11/28/22 12/17/22 ferrous sulfate 325 mg (65 mg 325 mg PO DAILY 12/17/22 12/17/22 iron) tablet tizanidine 2 mg capsule 2 mg PO Q8H PRN 12/17/22 12/17/22 Previous Rx's Medication Instructions Recorded methocarbamol 750 mg tablet 750 mg PO Q8H PRN muscle pain #30 11/21/22 tabs tramadol 50 mg tablet 50 mg PO TID PRN pain #30 tabs 12/17/22 oxycodone-acetaminophen 5 mg-325 1 tab PO Q6H PRN pain #20 tabs 12/20/22 mg tablet Allergies Allergy/AdvReac Type Severity Reaction Status Date / Time milk Allergy Mild Verified 12/19/22 19:53 Review of Systems Review of Systems Narrative: Pertinent positive and negative findings as per HPI Patient History Medical History Chronic low back pain Fusion of lumbar spine Lumbar radiculopathy Lumbar spinal stenosis due to adjacent segment disease after fusion procedure Social History Smoking Status: Never smoker Smoking Status: Never smoker alcohol intake frequency: 0-2 drinks per day Substance Use Type: does not use Exam Initial Vital Signs Initial Vital Signs: Vital Signs Temperature 97.5 F L 12/19/22 19:49 Pulse Rate 102 H 12/19/22 19:49 Respiratory Rate 18 12/19/22 19:49 Blood Pressure 149/101 H 12/19/22 19:49 Pulse Oximetry 99 12/19/22 19:49 Oxygen Delivery Method Room Air 12/19/22 19:49 General: Alert appropriate in no acute distress Respiratory: Able to speak in full sentences, no obvious respiratory distress Skin: No obvious rashes, warm and dry Neurologic: He is able to walk without significant weakness in either leg., decreased sensation in the posterior portion of the leg calf and foot including the top of the foot compared to the right side. He does have 5/5 strength. Patellar and ankle reflexes are symmetrical bilaterally. Right leg also has 5/5 strength. Slight decreased sensation on the dorsum of the foot. Back: There is no point tenderness along the lumbar spine. Surgical site there is healing nicely Psych: appropriate insight and affect, cooperative Course Orders Ordered: Discontinued Medications Hydromorphone HCl (Hydromorphone 1 Mg Inj) 2 mg IM NOW ONE Stop: 12/20/22 01:15 Oxycodone/Acetaminophen (Oxycodone/Apap 5/325 Prepack) 1 bottle MISC SEEINSTR ONE Stop: 12/20/22 01:15 Vital Signs Vital signs: Vital Signs - 8 hr 12/19/22 19:49 12/19/22 22:00 12/20/22 00:53 Temperature 97.5 F L Pulse Rate 102 H 80 84 Respiratory Rate 18 18 18 Blood Pressure 149/101 H 162/90 H 138/95 H Pulse Oximetry 99 98 98 Oxygen Delivery Method Room Air Room Air Room Air MDM - Back Pain/Injury MDM Narrative Medical decision making narrative: CC: Progressive radicular pain now involving the right side. This is an acute problem exacerbating his chronic issues with uncertain prognosis Complicating co-morbidities: Multiple prior spine surgeries, known multilevel canal stenosis as well as foraminal stenoses, moderate chronic T12 compression fracture. Data collected from: patient, Social determinants of health that may influence the patients condition: Persistent pain and significant sleep deprivation Medical records reviewed: MRI of the lumbar spine on 11/21/2022 and 12/12/2022 do not show significant progression of symptoms. The December 12, 2022 exam was after recent spinal epidural injection and did not show any evidence of epidural abscess. Differential considered: Progression of chronic disease, inflammation, epidural abscess Exam documented above, pertinent findings include: Radicular pain down both legs with normal reflexes, normal strength and no evidence of point tenderness along the lumbar spine to suggest developing epidural abscess Imaging studies independently reviewed: MR spine from 12/12/2022, 11/21/2022 are reviewed Treatments: IM Dilaudid, 2 mg, Percocet take-home pack Discussion: 47-year-old gentleman with significant radicular back pain, spinal stenosis, T12 compression fracture with progression of his radicular symptoms with surgery anticipated in the next 4-6 weeks. Significant sleep deprivation with no benefit from recent Medrol Dosepak. He is given IM Dilaudid for pain control and prescription for Percocet, 20. Pills. He will be following up with his orthopedic surgeon tomorrow to talk about timing of surgery and continued treatment of his pain. At this point clearly his tramadol is not working. Did encourage him to continue Lyrica and Tylenol. He is aware that Percocet does have Tylenol in it. We also talked about the importance of stool softeners to prevent constipation. At this point I do not think that this is an acute neurosurgical emergency and outpatient pain control until he is able to follow-up with his surgeon and anticipated surgery is going to be appropriate. Discharge Plan Departure Patient Disposition: Home Clinical Impression: Chronic low back pain, Fusion of lumbar spine, Lumbar spinal stenosis due to adjacent segment disease after fusion procedure, Lumbar radiculopathy Instructions: DI for Back Pain With Sciatica Activity Restrictions/Additional Instructions: I am sorry that you are suffering with this back pain. I have given you a shot of Dilaudid and a prescription for Percocet to use for pain. Narcotics for chronic pain and never the answer but sometimes are necessary to at least get some sleep. Please make sure you add MiraLax into your daily regimen to prevent constipation. At this time, I am not concerned that you have new findings, infection or epidural access that would require additional workup or hospitalization today. I have given you a prescription for Percocet, please use this sparingly. I would recommend not mixing this with tramadol. It is appropriate take with your Lyrica. Please contact your spine surgeon tomorrow to let him know of the events, the increased pain and work out an appropriate pain plan to get you through to your surgery. If you find that you are getting worse or develop any new symptoms, please feel free to return to the emergency department for further evaluation. Prescriptions: New oxycodone-acetaminophen 5-325 mg tablet 1 tab PO Q6H PRN (Reason: pain) Qty: 20 0RF No Action methocarbamol 750 mg tablet 750 mg PO Q8H PRN (Reason: muscle pain) Qty: 30 0RF pregabalin 200 mg capsule 200 mg PO TID Patient Comments: TAKE ONE CAPSULE BY MOUTH THREE TIMES DAILY omeprazole 20 mg capsule,delayed release(DR/EC) 20 mg PO DAILY duloxetine 60 mg capsule,delayed release(DR/EC) 60 mg PO DAILY ferrous sulfate 325 mg (65 mg iron) tablet 325 mg PO DAILY tizanidine 2 mg capsule 2 mg PO Q8H PRN tramadol 50 mg tablet 50 mg PO TID PRN (Reason: pain) Qty: 30 1RF Referrals: Miscellaneous,Doctor, MD [Primary Care Provider] - Stand Alone Forms: Patient Portal/API
[2022-12-20] MEDS: OXYCODONE/APAP 5/325 PREPACK 1 BOTTLE MISC (01:43)
[2022-12-20] MEDS: HYDROMORPHONE 1 MG INJ 2 MG IM (01:43)
[2022-12-20 02:21] VITALS: BP 130/88; PULSE 80; RESP 18; O2SAT 98
== END 2022-12-20 02:22 | disposition home or self-care (01) ==
PROVIDERS: Emergency Provider Emergency Medicine
DX: M54.16 Radiculopathy, lumbar region (principal); M54.50 Low back pain, unspecified; M43.26 Fusion of spine, lumbar region; M48.061 Spinal stenosis, lumbar region without neurogenic claudication
CPT/HCPCS: 96372; 99283; J1170

== ENCOUNTER 2022-12-29 08:52 | Emergency (ER) | payer OTHER, MEDICAID, SELFPAY ==
--- NOTE | 2022-12-29 08:59 | ED_ITS ---
HPI - General Adult General Chief complaint: Back Pain/Injury Stated complaint: back hurting Time Seen by Provider: 12/29/22 08:58 History of Present Illness HPI narrative: 47-year-old male nonsmoker with extensive history of chronic back pain with multiple prior surgeries presents with ongoing radicular symptoms. He denies any fever or chills, takes no anticoagulation, denies any new trauma or injury, denies loss of control of bowel or bladder, denies any lower extremity weakness. He is managed by Dr. Martinez at [facility] And expects to hear about the specifics of his upcoming surgery as soon as Saturday. He states that he has ongoing low back pain with radiation down his left leg with numbness and tingling of the majority of his left leg but also some pain going down his right leg which is a relatively new finding. He ambulates without much in the way of difficulty. He has been seen as recently as a week or 2 ago was given a short course of oxycodone at that time. His pain is worse when he moves and improves with rest. He has been taking Lyrica as directed, he is unable to take anti inflammatories due to a prior gastric bypass. His last steroid taper was early December and he states it did seem to help but he is no longer on steroids Related Data Home Medications Medication Instructions Recorded Confirmed duloxetine 60 mg capsule,delayed 60 mg PO DAILY 11/28/22 12/17/22 release omeprazole 20 mg capsule,delayed 20 mg PO DAILY 11/28/22 12/17/22 release pregabalin 200 mg capsule 200 mg PO TID 11/28/22 12/17/22 ferrous sulfate 325 mg (65 mg 325 mg PO DAILY 12/17/22 12/17/22 iron) tablet tizanidine 2 mg capsule 2 mg PO Q8H PRN 12/17/22 12/17/22 Previous Rx's Medication Instructions Recorded methocarbamol 750 mg tablet 750 mg PO Q8H PRN muscle pain #30 11/21/22 tabs tramadol 50 mg tablet 50 mg PO TID PRN pain #30 tabs 12/17/22 oxycodone-acetaminophen 5 mg-325 1 tab PO Q6H PRN pain #20 tabs 12/20/22 mg tablet methylprednisolone 4 mg tablets in See Rx Instructions PO .COMPLEX 12/29/22 a dose pack (Medrol (Ambrose)) #21 ea oxycodone 5 mg tablet 5 mg PO Q8H PRN pain (scale score 12/29/22 7-10) #10 tabs Allergies Allergy/AdvReac Type Severity Reaction Status Date / Time milk Allergy Mild Verified 12/29/22 09:06 Review of Systems Review of Systems Narrative: GENERAL: Denies chills, fatigue, malaise, fever, sweats. HEENT: Denies sinus pain, ear pain, sore throat, difficulty swallowing, dizziness. RESPIRATORY: Denies dyspnea, cough, wheezing, hemoptysis, sputum. CARDIOVASCULAR: Denies chest pain, palpitations, orthopnea, edema, GASTROINTESTINAL: Denies nausea, vomiting, abdominal pain, diarrhea, constipation, melena. : Denies dysuria, frequency, incontinence, hematuria, urinary retention. MUSCULOSKELETAL: see HPI SKIN: Denies rash, skin lesions, or other NEUROLOGIC: see HPI PSYCHIATRIC: No concerning psychosocial issues. 12 point review of systems is negative except for those stated above Patient History Medical History Chronic low back pain Fusion of lumbar spine Lumbar radiculopathy Lumbar spinal stenosis due to adjacent segment disease after fusion procedure Social History Smoking Status: Never smoker Smoking Status: Never smoker alcohol intake frequency: 0-2 drinks per day Substance Use Type: does not use Exam Narrative Exam Narrative: GENERAL: [47] year old patient appears stated age. Well-developed patient, in mild distress. HEAD: Atraumatic. Normocephalic. EYES: Pupils equal round and reactive. Extraocular motions intact. No scleral icterus. No injection or drainage. ENT: Nose without bleeding, purulent drainage. Throat without erythema, tonsillar hypertrophy or exudate. Airway patent. NECK: Trachea midline. Non tender CARDIOVASCULAR: Regular rate and rhythm without murmurs, gallops, or rubs. RESPIRATORY: Clear to auscultation. Breath sounds equal bilaterally. No wheezes, rales, or rhonchi. GASTROINTESTINAL: Abdomen soft, non-tender, nondistended. EXTREMITIES: No edema or joint tenderness. BACK: braider tender but free of any obvious external abnormalities. Patient exam notes decreased range of motion and muscle spasm, but no CVA tenderness, or vertebral point tenderness. There are no symptoms of cauda equina such as saddle anesthesia, or strength. He does have decreased sensation of much of his left lower extremity which he reports a normal for him NEURO: AOx3. SKIN: No rash or erythema of visible areas Initial Vital Signs Initial Vital Signs: Vital Signs Temperature 96.9 F L 12/29/22 09:04 Pulse Rate 61 12/29/22 09:04 Respiratory Rate 18 12/29/22 09:04 Blood Pressure 132/91 H 12/29/22 09:04 Pulse Oximetry 100 12/29/22 09:04 Oxygen Delivery Method Room Air 12/29/22 09:04 Course Orders Ordered: Discontinued Medications Hydromorphone HCl (Hydromorphone 1 Mg Inj) 1 mg IM NOW ONE Stop: 12/29/22 09:07 Last Admin: 12/29/22 09:17 Dose: 1 mg Vital Signs Vital signs: Vital Signs - 8 hr 12/29/22 09:04 Temperature 96.9 F L Pulse Rate 61 Respiratory Rate 18 Blood Pressure 132/91 H Pulse Oximetry 100 Oxygen Delivery Method Room Air Medical Decision Making [facility] Narrative Medical decision making narrative: [47] year old patient presents with Ongoing pain from known lumbar radiculopathy Multiple etiologies for patient's symptoms considered including, but not limited to: [ acute on chronic lumbar radiculopathy versus cauda equina versus epidural abscess versus other] Prior Charts reviewed in our EMR Primary Historian: patient Patient's symptoms improved over duration of stay with above-stated therapies. patient with extensive back history and known lumbar radiculopathy with upcoming surgery has no neurosurgical complaints or findings. Findings and discharge diagnosis discussed with patient/family followed by verbalization of understanding Return precautions discussed with patient/family whom verbalize understanding of diagnosis and plan Discharge Plan Departure Patient Disposition: Home Clinical Impression: Lumbar back pain with radiculopathy affecting lower extremity Instructions: DI for Lumbar Radiculopathy Activity Restrictions/Additional Instructions: *You have been diagnosed with [ acute on chronic lumbar radiculopathy with gradual progression. As we discussed thankfully your history and physical exam would suggest against the likelihood of a neurosurgical emergency. I am glad you expect to get news about your upcoming surgery as soon as Saturday. ] *What to do: *Please continue to take your regular medications as directed. [ x] New medication prescriptions sent to your pharmacy: [[facility] ] [ ] New medication written as a paper prescription [ ] No new medications given *Please follow up with your primary care provider in 2-3 days, call for an appointment. Let them know you were seen in the Emergency Department and that we ask that you be seen in follow up. We will electronically transmit a record of today's note if your PCP is in our system *Return to Emergency Department if you should have any new, worsening or concerning symptoms, such as [fever greater than 101 F, shaking chills, worsening pain, persistent vomiting or other bothersome symptoms] You have been prescribed a short course of narcotic medications. These are potentially dangerous and addictive medications that should be used carefully. While on these medications you cannot drive or operate heavy machinery. Additionally, you cannot sign legal documents or perform any duties such as this. 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 Please understand that we cannot provide further refills of narcotics or controlled substances through the ED and your pain management will need to be through your Primary Care Provider Prescriptions: New methylprednisolone [Medrol (Ambrose)] 4 mg tablets,dose pack See Rx Instructions .ROUTE .COMPLEX Qty: 21 0RF Rx Instructions: orally per package directions oxycodone 5 mg tablet 5 mg PO Q8H PRN (Reason: pain (scale score 7-10)) Qty: 10 0RF No Action methocarbamol 750 mg tablet 750 mg PO Q8H PRN (Reason: muscle pain) Qty: 30 0RF oxycodone-acetaminophen 5-325 mg tablet 1 tab PO Q6H PRN (Reason: pain) Qty: 20 0RF pregabalin 200 mg capsule 200 mg PO TID Patient Comments: TAKE ONE CAPSULE BY MOUTH THREE TIMES DAILY omeprazole 20 mg capsule,delayed release(DR/EC) 20 mg PO DAILY duloxetine 60 mg capsule,delayed release(DR/EC) 60 mg PO DAILY ferrous sulfate 325 mg (65 mg iron) tablet 325 mg PO DAILY tizanidine 2 mg capsule 2 mg PO Q8H PRN tramadol 50 mg tablet 50 mg PO TID PRN (Reason: pain) Qty: 30 1RF Referrals: Miscellaneous,Doctor, MD [Primary Care Provider] - Stand Alone Forms: Patient Portal/API
[2022-12-29 09:01] VITALS: BP 132/91; PULSE 63; O2SAT 98
[2022-12-29 09:04] VITALS: BP 132/91; PULSE 61; RESP 18; TEMP 36.1; O2SAT 100; BMI 33.0
[2022-12-29] MEDS: HYDROMORPHONE 1 MG INJ IM (09:17)
[2022-12-29 09:30] VITALS: BP 129/93; PULSE 71; O2SAT 98
== END 2022-12-29 09:39 | disposition home or self-care (01) ==
PROVIDERS: Emergency Provider Emergency Medicine
DX: M54.16 Radiculopathy, lumbar region (principal)
CPT/HCPCS: 96372; 99283; J1170

== ENCOUNTER 2023-01-10 03:31 | Emergency (ER) | payer OTHER, MEDICAID, SELFPAY ==
[2023-01-10 03:33] VITALS: BP 132/92; PULSE 101; O2SAT 99
[2023-01-10 03:35] VITALS: BP 132/92; PULSE 80; RESP 18; TEMP 36.5; O2SAT 99; BMI 71.7
--- NOTE | 2023-01-10 03:40 | ED_ITS ---
HPI - Back Pain/Injury General Chief Complaint: Back Pain/Injury Stated Complaint: back pain Time Seen by Provider: 01/10/23 03:31 Source: patient Mode of arrival: EMS Limitations: no limitations History of Present Illness HPI Narrative: Patient is a 47-year-old male. Had been here multiple times over the past 2 months for back discomfort. He is scheduled for surgery within the next month. Is seen by Neurosurgery. Has also seen by his primary doctor. He states that the discomfort that brought him in tonight is his normal back discomfort but the Flexeril and pain medication that he has not home has not been helpful. He reports no new symptoms. No new trauma. Related Data Home Medications Medication Instructions Recorded Confirmed duloxetine 60 mg capsule,delayed 60 mg PO DAILY 11/28/22 12/17/22 release omeprazole 20 mg capsule,delayed 20 mg PO DAILY 11/28/22 12/17/22 release pregabalin 200 mg capsule 200 mg PO TID 11/28/22 12/17/22 ferrous sulfate 325 mg (65 mg 325 mg PO DAILY 12/17/22 12/17/22 iron) tablet tizanidine 2 mg capsule 2 mg PO Q8H PRN 12/17/22 12/17/22 Previous Rx's Medication Instructions Recorded methocarbamol 750 mg tablet 750 mg PO Q8H PRN muscle pain #30 11/21/22 tabs tramadol 50 mg tablet 50 mg PO TID PRN pain #30 tabs 12/17/22 oxycodone-acetaminophen 5 mg-325 1 tab PO Q6H PRN pain #20 tabs 12/20/22 mg tablet methylprednisolone 4 mg tablets in See Rx Instructions PO .COMPLEX 12/29/22 a dose pack (Medrol (Ambrose)) #21 ea oxycodone 5 mg tablet 5 mg PO Q8H PRN pain (scale score 12/29/22 7-10) #10 tabs Allergies Allergy/AdvReac Type Severity Reaction Status Date / Time milk Allergy Mild Verified 12/29/22 09:06 Review of Systems Constitutional Constitutional: Reports system reviewed and no additional complaints, except as documented Genitourinary Genitourinary: Reports system reviewed and no additional complaints, except as documented Musculoskeletal Musculoskeletal: Reports system reviewed and no additional complaints, except as documented Integumentary/Breasts Skin/Breast: Reports system reviewed and no additional complaints, except as documented Neurologic Neurologic: Reports system reviewed and no additional complaints, except as documented Hematologic/Lymphatic On Anticoagulants: No Patient History Medical History Chronic low back pain Fusion of lumbar spine Lumbar radiculopathy Lumbar spinal stenosis due to adjacent segment disease after fusion procedure Social History Smoking Status: Never smoker Smoking Status: Never smoker alcohol intake frequency: 0-2 drinks per day Substance Use Type: does not use Exam Initial Vital Signs Initial Vital Signs: Vital Signs Pulse Rate 101 H 01/10/23 03:33 Blood Pressure 132/92 H 01/10/23 03:33 Pulse Oximetry 99 01/10/23 03:33 Const General: cooperative, comfortable and No ill appearing HENMT Head: normal to inspection and normocephalic Resp Effort & Inspection: normal respiratory effort Cardio Rate: regular rate Back/Spine/Pelvis Back: normal to inspection Skin General: no rashes or lesions noted Neuro General: patient alert, patient awake and moves all extremities Course Orders Ordered: Discontinued Medications Hydromorphone HCl (Hydromorphone 1 Mg Inj) 1 mg IM NOW ONE Stop: 01/10/23 03:41 Last Admin: 01/10/23 03:54 Dose: 1 mg Documented By: LORNA Ketorolac Tromethamine (Ketorolac 30 Mg/Ml Vial) 30 mg IM NOW ONE Stop: 01/10/23 03:41 Last Admin: 01/10/23 03:53 Dose: 30 mg Documented By: LORNA Vital Signs Vital signs: Vital Signs - 8 hr 01/10/23 03:35 01/10/23 03:33 01/10/23 03:33 Temperature 97.7 F Pulse Rate 80 101 H Respiratory Rate 18 Blood Pressure 132/92 H 132/92 H Pulse Oximetry 99 99 Oxygen Delivery Method Room Air 01/10/23 04:00 01/10/23 04:00 01/10/23 04:30 Temperature Pulse Rate 68 Respiratory Rate Blood Pressure 109/84 118/86 Pulse Oximetry 100 Oxygen Delivery Method 01/10/23 04:30 Temperature Pulse Rate 66 Respiratory Rate 18 Blood Pressure Pulse Oximetry 100 Oxygen Delivery Method MDM - Back Pain/Injury MDM Narrative Medical decision making narrative: Patient has had a very extensive workup over the past couple months to include an MRI of his back. He reports no new symptoms as worsening of his baseline symptoms that is home medications was not helping. He is scheduled for surgery. Patient was given pain medications here in the emergency department. 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 Will discharge patient home. No indication for repeat imaging here in the emergency department. Low suspicion for acute pathology. Discharge Plan Departure Patient Disposition: Home Clinical Impression: Chronic low back pain Instructions: Managing Chronic Low Back Pain Activity Restrictions/Additional Instructions: I do recommend that you continue to take all of your medications as directed and keep all of your scheduled medical appointments. Return to the emergency department for new symptoms. Prescriptions: No Action methocarbamol 750 mg tablet 750 mg PO Q8H PRN (Reason: muscle pain) Qty: 30 0RF oxycodone-acetaminophen 5-325 mg tablet 1 tab PO Q6H PRN (Reason: pain) Qty: 20 0RF methylprednisolone [Medrol (Ambrose)] 4 mg tablets,dose pack See Rx Instructions .ROUTE .COMPLEX Qty: 21 0RF Rx Instructions: orally per package directions oxycodone 5 mg tablet 5 mg PO Q8H PRN (Reason: pain (scale score 7-10)) Qty: 10 0RF pregabalin 200 mg capsule 200 mg PO TID Patient Comments: TAKE ONE CAPSULE BY MOUTH THREE TIMES DAILY omeprazole 20 mg capsule,delayed release(DR/EC) 20 mg PO DAILY duloxetine 60 mg capsule,delayed release(DR/EC) 60 mg PO DAILY ferrous sulfate 325 mg (65 mg iron) tablet 325 mg PO DAILY tizanidine 2 mg capsule 2 mg PO Q8H PRN tramadol 50 mg tablet 50 mg PO TID PRN (Reason: pain) Qty: 30 1RF Referrals: Miscellaneous,Doctor, MD [Primary Care Provider] - Stand Alone Forms: Patient Portal/API
[2023-01-10] MEDS: KETOROLAC 30 MG/ML VIAL IM (03:53)
[2023-01-10] MEDS: HYDROMORPHONE 1 MG INJ IM (03:54)
[2023-01-10 04:00] VITALS: BP 109/84; PULSE 68; O2SAT 100
[2023-01-10 04:30] VITALS: BP 118/86; PULSE 66; RESP 18; O2SAT 100
== END 2023-01-10 05:17 | disposition home or self-care (01) ==
PROVIDERS: Emergency Provider Emergency Medicine
DX: G89.29 Other chronic pain (principal); M54.50 Low back pain, unspecified
CPT/HCPCS: 96372; 99283; J1170; J1885

== ENCOUNTER 2023-02-12 21:35 | Emergency (ER) | payer OTHER, MEDICAID, SELFPAY ==
[2023-02-12 21:48] VITALS: BP 149/92; PULSE 82; RESP 16; TEMP 36.9; O2SAT 100; BMI 31.8
--- NOTE | 2023-02-12 22:02 | DI.RAD.S_ITS ---
PROCEDURE: XR ACUTE ABDOMEN SERIES INDICATIONS: abdominal pain TECHNIQUE: One view chest and two views of the abdomen were acquired. COMPARISON: [facility], CR, XR LUMBAR SPINE 2-3V, 11/18/2022, 21:08. FINDINGS: Surgical changes and devices: Postsurgical changes are redemonstrated within the lower lumbar spine status post posterior fixation and fusion. Chest: Lungs are clear. Heart size is normal. No pleural effusions. No pneumoperitoneum. Abdomen: Bowel gas pattern is normal. No suspicious calcifications. Bones: No suspicious bony lesions. IMPRESSION: 1. Bowel gas pattern within normal limits. No definite acute intra-abdominal radiographic abnormality. Dictated by: Farzad Vidales M.D. on 02/12/2023 at 23:54 Approved by: Farzad Vidales M.D. on 02/13/2023 at 0:00
[2023-02-12 22:19] LABS: Add Manual Diff / Slide Review NO; Basophils Absolute Auto 100 /uL (0-100); Basophils Percent Auto 0.8 % (0-2); Eosinophils Absolute Auto 100 /uL (0-450); Eosinophils Percent Auto 0.9 % (2-4); Hematocrit 40.2 % (41-53); Hemoglobin 13.3 g/dL (13.5-17.5); Lymphocytes Absolute Auto 3900 /uL (1100-4500); Mean Corpuscular HGB Conc 33.1 % (30-36); Mean Corpuscular Hemoglobin 26.3 PG (26-34); Mean Corpuscular Volume 79.6 fL (80-100); Monocytes Absolute Auto 900 /uL (0-900); Monocytes Percent Auto 7.8 % (3-14); Neutrophils Absolute Auto 6200 /uL (1500-7000); Neutrophils Percent Auto 55.5 % (50-75); Platelet Count 557 X10^3/uL (150-400); Red Blood Cell Count 5.06 X10^6/uL (4.5-5.9); Red Cell Distribution Width 17.7 % (11.6-14.8); White Blood Cell Count 11.2 X10^3/uL (4.5-11.0)
[2023-02-12 22:23] LABS: Alanine Aminotransferase 38 IU/L (<50); Albumin 4.8 g/dL (3.5-5.0); Albumin Globulin Ratio 1.3 (1.0-2.8); Alkaline Phosphatase 100 U/L (38-126); Aspartate Aminotransferase 71 IU/L (17-59); BUN Creatinine Ratio 14.9 (6-22); Bilirubin Total 0.7 mg/dL (0.2-1.3); Blood Urea Nitrogen 13 mg/dL (9-20); Calcium 9.4 mg/dL (8.4-10.2); Carbon Dioxide 21 mmol/L (22-32); Chloride 106 mmol/L (98-107); Estimated Glomerular Filt Rate > 60 mL/min (>60); Globulin 3.8 g/dL (1.7-4.1); Glucose 137 mg/dL (70-100); HEMOLYSIS < 15 (0-50); Lipase 251 U/L (23-300); Potassium 4.1 mmol/L (3.4-5.1); Sodium 140 mmol/L (137-145); Total Protein 8.6 g/dL (6.3-8.2)
[2023-02-12] MEDS: ONDANSETRON 4 MG/2 ML INJ IV (23:12)
[2023-02-12] MEDS: PANTOPRAZOLE 40 MG VIAL IV (23:35)
--- NOTE | 2023-02-13 00:20 | DI.CT.S_ITS ---
PROCEDURE: CT ABDOMEN PELVIS W CON INDICATIONS: Vomiting gastric bipass TECHNIQUE: After the administration of IV contrast, axial sections were acquired from the lung bases to the pubic symphysis. Coronal and sagittal reformats were performed. For radiation dose reduction, the following was used: automated exposure control, adjustment of mA and/or kV according to patient size. COMPARISON: None. FINDINGS: Image quality: Excellent. Lung bases: Unremarkable. Heart: Heart is normal in size. ABDOMEN: Liver: There are few scattered cysts in the liver as well as additional small low-density foci which are too small to characterize. Gallbladder: There are a few dependent calcified gallstones in the gallbladder which is distended. No wall thickening or pericholecystic fluid. Biliary ducts: No biliary ductal dilatation. Pancreas: Unremarkable. Spleen: Normal in size. Adrenal Glands: There is a cystic collection measuring approximately 3.3 x 2.8 cm with peripheral calcification along the inferior aspect of the left adrenal gland. Kidneys and Ureters: No hydronephrosis. There is a nonobstructing right renal stone measuring up to 0.5 cm with attenuation values of approximately 300-400 Hounsfield units. Stomach and Bowel: Postsurgical changes are demonstrated consistent with prior gastric bypass. Stomach, small bowel loops, and colon are normal in caliber and wall thickness. The appendix is normal. Peritoneum: No abnormal intraperitoneal fluid. No free air. Ventral Wall: No hernia. Abdominal Nodes: No retroperitoneal or mesenteric adenopathy by size criteria. Vessels: Aorta and inferior vena cava are normal in size. PELVIS: Pelvic Organs: Unremarkable. Bladder: Unremarkable. Pelvic Nodes: No enlarged lymph nodes. Miscellaneous: No inguinal hernias are seen. Bones: There are postsurgical changes status post posterior fixation and fusion in the lower lumbar spine at L3 through S1. Visualized osseous structures demonstrate no suspicious focal lesions. IMPRESSION: 1. No evidence of bowel obstruction. 2. Cholelithiasis and distention of the gallbladder without wall thickening or pericholecystic fluid to definitely suggest cholecystitis on CT. 3. Cystic lesion adjacent to the left adrenal gland is nonspecific and may represent sequelae of prior trauma. Dictated by: Farzad Vidales M.D. on 02/13/2023 at 2:28 Approved by: Farzad Vidales M.D. on 02/13/2023 at 2:33
--- NOTE | 2023-02-13 00:29 | ED_ITS ---
HPI - Abdominal Pain General Chief Complaint: Abdominal Pain Stated Complaint: abd pain s/p gastric bypass Time Seen by Provider: 02/13/23 00:20 Source: patient Mode of arrival: Ambulatory History of Present Illness HPI narrative: Patient is a 39-year-old male history of gastric bypass surgery chronic back pain presenting today with abdominal pain nausea and dry heaving. He reports that it getting ready for back surgery in 2 days. He was given ensure to during however he is allergic to milk and it has milk in. Feels extremely bloated he is having severe abdominal pain he is dry heaving but can not actually vomit. He is already been given Zofran Protonix pain continues. He is tried walking and belching which only helps a little. Previously who has been doing well until he started drinking this drink Related Data Home Medications Medication Instructions Recorded Confirmed duloxetine 60 mg capsule,delayed 60 mg PO DAILY 11/28/22 01/10/23 release omeprazole 20 mg capsule,delayed 20 mg PO DAILY 11/28/22 01/10/23 release pregabalin 200 mg capsule 200 mg PO TID 11/28/22 01/10/23 ferrous sulfate 325 mg (65 mg 325 mg PO DAILY 12/17/22 01/10/23 iron) tablet tizanidine 2 mg capsule 2 mg PO Q8H PRN 12/17/22 01/10/23 Previous Rx's Medication Instructions Recorded methocarbamol 750 mg tablet 750 mg PO Q8H PRN muscle pain #30 11/21/22 tabs oxycodone-acetaminophen 5 mg-325 1 tab PO Q6H PRN pain #20 tabs 12/20/22 mg tablet methylprednisolone 4 mg tablets in See Rx Instructions PO .COMPLEX 12/29/22 a dose pack (Medrol (Ambrose)) #21 ea oxycodone 5 mg tablet 5 mg PO Q8H PRN pain (scale score 12/29/22 7-10) #10 tabs Allergies Allergy/AdvReac Type Severity Reaction Status Date / Time milk Allergy Mild Verified 01/10/23 09:01 Review of Systems Review of Systems ROS Unobtainable: All systems reviewed & are unremarkable except as noted in HPI and below Patient History Medical History Chronic low back pain Fusion of lumbar spine Lumbar radiculopathy Lumbar spinal stenosis due to adjacent segment disease after fusion procedure Social History Smoking Status: Never smoker Smoking Status: Never smoker alcohol intake frequency: 0-2 drinks per day Substance Use Type: does not use Exam Initial Vital Signs Initial Vital Signs: Vital Signs Temperature 98.4 F 02/12/23 21:48 Pulse Rate 82 02/12/23 21:48 Respiratory Rate 16 02/12/23 21:48 Blood Pressure 149/92 H 02/12/23 21:48 Pulse Oximetry 100 02/12/23 21:48 Oxygen Delivery Method Room Air 02/12/23 21:48 GENERAL: Actively dry heaving appears uncomfortable and in no acute distress. HEENT: Head atraumatic,EOMI, pupils reactive, face symmetric, moist mucous me mbranes CARDIOVASCULAR: Regular rate and rhythm without murmurs, rubs or gallops. RESPIRATORY: Breath sounds equal bilaterally, no wheezes rales or rhonchi. ABDOMEN: Soft, tender epigastric left upper quadrant region noticed significant distention EXTREMITIES: Normal range of motion, no clubbing or edema. Neurovascularly intact NEUROLOGICAL: Alert and oriented x4. SKIN: Warm, dry, no laceration, no petechiae, no rashes or lesions. Course Orders Ordered: ED Orders 02/12/23 21:05 Complete Blood Count AUTO DIFF Stat Comprehensive Metabolic Panel Stat Lipase Stat 02/12/23 22:02 XR acute abdomen series Stat 02/13/23 00:20 CT abdomen pelvis w con Stat Lactate (Lactic Acid) Stat Discontinued Medications Hydromorphone HCl (Hydromorphone 1 Mg Inj) 1 mg IV NOW ONE Stop: 02/13/23 00:21 Last Admin: 02/13/23 00:40 Dose: 1 mg Documented By: LORNA Sodium Chloride (Normal Saline 0.9%) 1,000 mls @ 1,000 mls/hr IV BOLUS ONE Stop: 02/13/23 01:44 Last Infusion: 02/13/23 01:50 Dose: 0 mls/hr Documented By: Admin: 02/13/23 00:50 Dose: 1,000 mls/hr Documented By: LORNA Ondansetron HCl (Ondansetron 4 Mg/2 Ml Inj) 4 mg IV NOW PRN PRN Reason: Nausea And Vomiting Last Admin: 02/12/23 23:12 Dose: 4 mg Documented By: BS Ondansetron HCl (Ondansetron 4 Mg/2 Ml Inj) 4 mg IV NOW ONE Stop: 02/13/23 00:21 Last Admin: 02/13/23 00:40 Dose: 4 mg Documented By: GC Pantoprazole Sodium (Pantoprazole 40 Mg Vial) 40 mg IV NOW ONE Stop: 02/12/23 23:23 Last Admin: 02/12/23 23:35 Dose: 40 mg Documented By: LN Vital Signs Vital signs: Vital Signs - 8 hr 02/12/23 21:48 02/13/23 03:35 Temperature 98.4 F 98 F Pulse Rate 82 78 Respiratory Rate 16 16 Blood Pressure 149/92 H 136/74 Pulse Oximetry 100 98 Oxygen Delivery Method Room Air Room Air MDM - Abdominal Pain Lab Data 02/12/23 21:05 02/12/23 21:05 Labs: Lab Results 02/12/23 02/12/23 02/12/23 Range/Units 21:05 21:05 21:05 WBC 11.2 H (4.5-11.0) X10^3/uL RBC 5.06 (4.5-5.9) X10^6/uL Hgb 13.3 L (13.5-17.5) g/dL Hct 40.2 L (41-53) % MCV 79.6 L (80-100) fL MCH 26.3 (26-34) PG MCHC 33.1 (30-36) % RDW 17.7 H (11.6-14.8) % Plt Count 557 H (150-400) X10^3/uL Neut % (Auto) 55.5 (50-75) % Lymph % (Auto) 35.0 (25-40) % [place] % (Auto) 7.8 (3-14) % Eos % (Auto) 0.9 L (2-4) % Baso % (Auto) 0.8 (0-2) % Neut # (Auto) 6200 (3000-0214) /uL Lymph # (Auto) 3900 (4072-3982) /uL [place] # (Auto) 900 (0-900) /uL Eos # (Auto) 100 (0-450) /uL Baso # (Auto) 100 (0-100) /uL Sodium 140 (137-145) mmol/L Potassium 4.1 (3.4-5.1) mmol/L Chloride 106 (98-107) mmol/L Carbon Dioxide 21 L (22-32) mmol/L BUN 13 (9-20) mg/dL Creatinine 0.87 (0.66-1.25) mg/dL Estimated GFR > 60 (>60) mL/min BUN/Creatinine Ratio 14.9 (6-22) Glucose 137 H (70-100) mg/dL Lactate 3.6 H (0.7-2.1) mmol/L Calcium 9.4 (8.4-10.2) mg/dL Total Bilirubin 0.7 (0.2-1.3) mg/dL AST 71 H (17-59) IU/L ALT 38 (<50) IU/L Alkaline Phosphatase 100 (38-126) U/L Total Protein 8.6 H (6.3-8.2) g/dL Albumin 4.8 (3.5-5.0) g/dL Globulin 3.8 (1.7-4.1) g/dL Albumin/Globulin Ratio 1.3 (1.0-2.8) Lipase 251 (23-300) U/L 02/13/23 Range/Units 02:36 WBC (4.5-11.0) X10^3/uL RBC (4.5-5.9) X10^6/uL Hgb (13.5-17.5) g/dL Hct (41-53) % MCV (80-100) fL MCH (26-34) PG MCHC (30-36) % RDW (11.6-14.8) % Plt Count (150-400) X10^3/uL Neut % (Auto) (50-75) % Lymph % (Auto) (25-40) % [place] % (Auto) (3-14) % Eos % (Auto) (2-4) % Baso % (Auto) (0-2) % Neut # (Auto) (8659-5582) /uL Lymph # (Auto) (5060-9840) /uL [place] # (Auto) (0-900) /uL Eos # (Auto) (0-450) /uL Baso # (Auto) (0-100) /uL Sodium (137-145) mmol/L Potassium (3.4-5.1) mmol/L Chloride (98-107) mmol/L Carbon Dioxide (22-32) mmol/L BUN (9-20) mg/dL Creatinine (0.66-1.25) mg/dL Estimated GFR (>60) mL/min BUN/Creatinine Ratio (6-22) Glucose (70-100) mg/dL Lactate 1.9 (0.7-2.1) mmol/L Calcium (8.4-10.2) mg/dL Total Bilirubin (0.2-1.3) mg/dL AST (17-59) IU/L ALT (<50) IU/L Alkaline Phosphatase (38-126) U/L Total Protein (6.3-8.2) g/dL Albumin (3.5-5.0) g/dL Globulin (1.7-4.1) g/dL Albumin/Globulin Ratio (1.0-2.8) Lipase (23-300) U/L Imaging Data Abdominal x-ray: Radiologist's Impression: PROCEDURE:? XR ACUTE ABDOMEN SERIES ? INDICATIONS:? abdominal pain ? TECHNIQUE:? One view chest and two views of the abdomen were acquired.? ? COMPARISON:? [facility], CR, XR LUMBAR SPINE 2-3V, 11/18/2022, 21:08. ? FINDINGS:? ? Surgical changes and devices:? Postsurgical changes are redemonstrated within the lower lumbar spine status post posterior fixation and fusion.? ? Chest:? Lungs are clear.? Heart size is normal.? No pleural effusions.? No pneumoperitoneum.? ? Abdomen:? Bowel gas pattern is normal.? No suspicious calcifications.? ? Bones:? No suspicious bony lesions.? ? IMPRESSION:? ? 1. Bowel gas pattern within normal limits.? No definite acute intra-abdominal radiographic abnormality. ? ? Dictated by: Farzad Vidales M.D. on 02/12/2023 at 23:54? CT scan - abdomen/pelvis: Radiologist's Impression: PROCEDURE:? CT ABDOMEN PELVIS W CON ? INDICATIONS:? Vomiting gastric bipass ? TECHNIQUE:? After the administration of IV contrast, axial sections were acquired from the lung bases to the pubic symphysis.? Coronal and sagittal reformats were performed.? For radiation dose reduction, the following was used:? automated exposure control, adjustment of mA and/or kV according to patient size. ? COMPARISON:? None. ? FINDINGS:? Image quality:? Excellent.? ? Lung bases:? Unremarkable.? ? Heart:? Heart is normal in size. ? ? ABDOMEN: Liver:? There are few scattered cysts in the liver as well as additional small low-density foci which are too small to characterize. Gallbladder:? There are a few dependent calcified gallstones in the gallbladder which is distended.? No wall thickening or pericholecystic fluid. Biliary ducts:? No biliary ductal dilatation.? ? Pancreas:? Unremarkable.? ? Spleen:? Normal in size.? ? Adrenal Glands:? There is a cystic collection measuring approximately 3.3 x 2.8 cm with peripheral calcification along the inferior aspect of the left adrenal gland. Kidneys and Ureters:? No hydronephrosis.? There is a nonobstructing right renal stone measuring up to 0.5 cm with attenuation values of approximately 300-400 Hounsfield units. ? ? Stomach and Bowel:? Postsurgical changes are demonstrated consistent with prior gastric bypass.? Stomach, small bowel loops, and colon are normal in caliber and wall thickness.? The appendix is normal. Peritoneum:? No abnormal intraperitoneal fluid.? No free air.? ? Ventral Wall: ? No hernia.? Abdominal Nodes:? No retroperitoneal or mesenteric adenopathy by size criteria.? Vessels:? Aorta and inferior vena cava are normal in size.? ? PELVIS: Pelvic Organs:? Unremarkable.? ? Bladder:? Unremarkable.? ? Pelvic Nodes: No enlarged lymph nodes.? Miscellaneous: No inguinal hernias are seen. ? ? ? Bones:? There are postsurgical changes status post posterior fixation and fusion in the lower lumbar spine at L3 through S1.? Visualized osseous structures demonstrate no suspicious focal lesions. ? IMPRESSION:? ? 1. No evidence of bowel obstruction. ? 2. Cholelithiasis and distention of the gallbladder without wall thickening or pericholecystic fluid to definitely suggest cholecystitis on CT. ? 3. Cystic lesion adjacent to the left adrenal gland is nonspecific and may represent sequelae of prior trauma. ? ? Dictated by: Farzad Vidales M.D. on 02/13/2023 at 2:28 ? ? [facility] Narrative Medical decision making narrative: Patient 47-year-old male history of gastric bypass presenting today with abdominal pain nausea vomiting. He does have a lactose allergy he was drinking lactose he was unable to around does. CT does not show any perforation or bowel obstruction. No complication. Pain is better after Dilaudid he is given IV fluids for lactate 3.6 which improved. I suspect the lactate is elevated secondary to vomiting infection evidence sepsis. Overall feeling better does not need any medications Discharge Plan Departure Patient Disposition: Home Clinical Impression: Abdominal pain Instructions: DI for Abdominal Pain-Adult Activity Restrictions/Additional Instructions: *You have been diagnosed with abdominal pain *What to do: At this time her abdominal pain was likely cause from the milk. Work and CT are reassuring *Continue to take medications as directed *Follow up with your primary care provider in 2-3 days or call [phone] *Return to ER if you should have increased abdominal pain nausea vomiting fever or any new, worsening or concerning symptoms Prescriptions: No Action methocarbamol 750 mg tablet 750 mg PO Q8H PRN (Reason: muscle pain) Qty: 30 0RF oxycodone-acetaminophen 5-325 mg tablet 1 tab PO Q6H PRN (Reason: pain) Qty: 20 0RF methylprednisolone [Medrol (Ambrose)] 4 mg tablets,dose pack See Rx Instructions .ROUTE .COMPLEX Qty: 21 0RF Rx Instructions: orally per package directions oxycodone 5 mg tablet 5 mg PO Q8H PRN (Reason: pain (scale score 7-10)) Qty: 10 0RF pregabalin 200 mg capsule 200 mg PO TID Patient Comments: TAKE ONE CAPSULE BY MOUTH THREE TIMES DAILY omeprazole 20 mg capsule,delayed release(DR/EC) 20 mg PO DAILY duloxetine 60 mg capsule,delayed release(DR/EC) 60 mg PO DAILY ferrous sulfate 325 mg (65 mg iron) tablet 325 mg PO DAILY tizanidine 2 mg capsule 2 mg PO Q8H PRN Referrals: Lukas Osorio [Primary Care Provider] - Stand Alone Forms: Patient Portal/API
[2023-02-13 00:33] LABS: Lactate (Lactic Acid) 3.6 mmol/L (0.7-2.1)
[2023-02-13] MEDS: ONDANSETRON 4 MG/2 ML INJ IV (00:40)
[2023-02-13] MEDS: HYDROMORPHONE 1 MG INJ IV (00:40)
[2023-02-13] MEDS: SODIUM CHLORIDE 0.9% 1,000 ML 1000 ML IV (00:50)
[2023-02-13 02:24] LABS: Reflexed Lactate in 2 Hours Y
[2023-02-13 03:00] LABS: Lactate 2HR (Lactic Acid Rflx) 1.9 mmol/L (0.7-2.1)
[2023-02-13 03:35] VITALS: BP 136/74; PULSE 78; RESP 16; TEMP 36.6; O2SAT 98
== END 2023-02-13 03:30 | disposition home or self-care (01) ==
PROVIDERS: Emergency Provider Emergency Medicine; PCP Family Medicine
DX: R10.9 Unspecified abdominal pain (principal); R11.2 Nausea with vomiting, unspecified
CPT/HCPCS: 36415; 74022; 74177; 80053; 83605; 83690; 85025; 96361; 96374; 96375; 96376; 99284; C9113; J1170; J2405; Q9967

== ENCOUNTER 2023-06-12 14:25 | Emergency (ER) | payer OTHER, SELFPAY ==
[2023-06-12 14:29] VITALS: BP 114/85; PULSE 88; RESP 18; TEMP 36.9; O2SAT 99; BMI 35.2
--- NOTE | 2023-06-12 14:55 | PC.NURSE ---
Pt reports that his most recent back surgery was in February and he has been off all his meds. Recently he has been experiencing increasing numbness, tingling and occasional loss of sensation in his lower extremities. Today he was walking down the stairs and stated that his left leg gave out and he fell down two steps and could not move. His two sons assisted him up from the fall and he has been using his walking poles for support. Pt continues to have numbness and pain in his feet at this time but full sensation never fully returned after falling today. Pt denies any loss of bowel and/or bladder control. Pt denies hitting his head or any LOC at the time of fall. Pt A&O x4.
--- NOTE | 2023-06-12 15:02 | ED.BACK ---
HPI - Back Pain/Injury General Chief Complaint: Back Pain/Injury Stated Complaint: fell 2x today back pain Time Seen by Provider: 06/12/23 14:30 Source: patient History of Present Illness HPI Narrative: 47-year-old male presents for left-sided lumbar back pain. 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 He states that he frequently has instability in his left leg from his chronic back issues and his left knee will occasionally give out. Today his leg gave out twice and he fell approximately 1.5 steps. He landed on his left side, and since then has had spasming in his lumbar back. He denies hitting his head, denies loss of consciousness. He states that his primary concern is that his hardware may be dislodged. He has an appointment in the next 2 weeks with his neurosurgeon concerning a previously known compression fracture above his current hardware. He denies new numbness, weakness, denies bowel or bladder incontinence, denies saddle anesthesia. Related Data Home Medications Medication Instructions Recorded Confirmed duloxetine 60 mg capsule,delayed 60 mg PO DAILY 11/28/22 01/10/23 release omeprazole 20 mg capsule,delayed 20 mg PO DAILY 11/28/22 01/10/23 release pregabalin 200 mg capsule 200 mg PO TID 11/28/22 01/10/23 ferrous sulfate 325 mg (65 mg 325 mg PO DAILY 12/17/22 01/10/23 iron) tablet tizanidine 2 mg capsule 2 mg PO Q8H PRN 12/17/22 01/10/23 Previous Rx's Medication Instructions Recorded methocarbamol 750 mg tablet 750 mg PO Q8H PRN muscle pain #30 11/21/22 tabs oxycodone-acetaminophen 5 mg-325 1 tab PO Q6H PRN pain #20 tabs 12/20/22 mg tablet methylprednisolone 4 mg tablets in See Rx Instructions PO .COMPLEX 12/29/22 a dose pack (Medrol (Ambrose)) #21 ea oxycodone 5 mg tablet 5 mg PO Q8H PRN pain (scale score 12/29/22 7-10) #10 tabs methocarbamol 750 mg tablet 750 mg PO TID #30 tabs 06/12/23 methylprednisolone 4 mg tablets in See Rx Instructions PO .COMPLEX 06/12/23 a dose pack (Medrol (Ambrose)) #21 ea Allergies Allergy/AdvReac Type Severity Reaction Status Date / Time milk Allergy Mild Verified 01/10/23 09:01 Review of Systems Review of Systems Narrative: Negative except as noted above. Patient History Medical History Chronic low back pain Fusion of lumbar spine Lumbar radiculopathy Lumbar spinal stenosis due to adjacent segment disease after fusion procedure Social History Smoking Status: Never smoker Smoking Status: Never smoker alcohol intake frequency: 0-2 drinks per day Substance Use Type: does not use Exam Initial Vital Signs Initial Vital Signs: Vital Signs Temperature 98.4 F 06/12/23 14:29 Pulse Rate 88 06/12/23 14:29 Respiratory Rate 18 06/12/23 14:29 Blood Pressure 114/85 06/12/23 14:29 Pulse Oximetry 99 06/12/23 14:29 Oxygen Delivery Method Room Air 06/12/23 14:29 Const: Awake, alert, no acute distress, nontoxic appearing Eyes: PERRL, EOMI, conjunctiva normal ENT: Atraumatic, dentition normal, mucous membranes moist Cardiac: regular rate, regular rhythm RESP: unlabored, clear bilaterally, no wheezing GI: Atraumatic, soft, nontender, nondistended, no rebound, no guarding MSK: Atraumatic, full range of motion, pulses equal, no midline lumbar tenderness Skin: Warm, Dry, intact, no rashes Neuro: AO x3, CN II-XII grossly intact, moves all extremities Psych: affect normal, mood normal, not suicidal, not homicidal Course Orders Ordered: Discontinued Medications Dexamethasone (Dexamethasone 10 Mg/Ml Vial) 10 mg IV NOW ONE Stop: 06/12/23 15:02 Last Admin: 06/12/23 16:43 Dose: 10 mg Documented By: ALEJANDRO Acetaminophen (Ofirmev) 1,000 mg in 100 mls @ 400 mls/hr IV NOW ONE Stop: 06/12/23 15:15 Last Infusion: 06/12/23 16:58 Dose: Infused Documented By: Admin: 06/12/23 16:43 Dose: 400 mls/hr Documented By: ALEJANDRO Ketorolac Tromethamine (Ketorolac 30 Mg/Ml Vial) 15 mg IV NOW ONE Stop: 06/12/23 15:02 Last Admin: 06/12/23 16:44 Dose: 15 mg Documented By: ALEJANDRO Lidocaine (Lidocaine Patch 1 Each Adh..Patch) 1 each TOP NOW ONE Stop: 06/12/23 15:02 Last Admin: 06/12/23 16:42 Dose: 1 each Documented By: ALEJANDRO Methocarbamol (Methocarbamol 500 Mg Tablet) 750 mg PO NOW ONE Stop: 06/12/23 15:02 Last Admin: 06/12/23 16:43 Dose: 750 mg Documented By: ALEJANDRO Oxycodone HCl (Oxycodone Ir 5 Mg Tablet) 5 mg PO NOW ONE Stop: 06/12/23 17:24 Last Admin: 06/12/23 17:28 Dose: 5 mg Documented By: ALEJANDRO Reevaluation(s) Reevaluation #1: Lumbar back spasms after falling 1.5 stairs. Did not hit head, no indication for CT imaging of the brain or C-spine. Patient states primary concern is that his hardware may be dislodged from the fall. There is no midline tenderness, no new neurologic deficits to suggest acute fracture or abscess. Reevaluation #2: X-ray imaging shows no dislodgement of hardware. Pain improved after medications. X-ray shows T12 compression fracture, which the patient is aware of. Counseled to follow with NSG as scheduled. Vital Signs Vital signs: Vital Signs - 8 hr 06/12/23 14:29 Temperature 98.4 F Pulse Rate 88 Respiratory Rate 18 Blood Pressure 114/85 Pulse Oximetry 99 Oxygen Delivery Method Room Air Discharge Plan Departure Patient Disposition: Home Clinical Impression: Strain of lumbar region, Back spasm Instructions: DI for Back Strain or Sprain Prescriptions: New methocarbamol 750 mg tablet 750 mg PO TID Qty: 30 0RF methylprednisolone [Medrol (Ambrose)] 4 mg tablets,dose pack See Rx Instructions .ROUTE .COMPLEX Qty: 21 0RF Rx Instructions: orally per package directions No Action methocarbamol 750 mg tablet 750 mg PO Q8H PRN (Reason: muscle pain) Qty: 30 0RF oxycodone-acetaminophen 5-325 mg tablet 1 tab PO Q6H PRN (Reason: pain) Qty: 20 0RF methylprednisolone [Medrol (Ambrose)] 4 mg tablets,dose pack See Rx Instructions .ROUTE .COMPLEX Qty: 21 0RF Rx Instructions: orally per package directions oxycodone 5 mg tablet 5 mg PO Q8H PRN (Reason: pain (scale score 7-10)) Qty: 10 0RF pregabalin 200 mg capsule 200 mg PO TID Patient Comments: TAKE ONE CAPSULE BY MOUTH THREE TIMES DAILY omeprazole 20 mg capsule,delayed release(DR/EC) 20 mg PO DAILY duloxetine 60 mg capsule,delayed release(DR/EC) 60 mg PO DAILY ferrous sulfate 325 mg (65 mg iron) tablet 325 mg PO DAILY tizanidine 2 mg capsule 2 mg PO Q8H PRN Referrals: Lukas Osorio [Primary Care Provider] - Stand Alone Forms: Patient Portal/API
--- NOTE | 2023-06-12 15:22 | DI.RAD.S_ITS ---
PROCEDURE: XR LUMBAR SPINE 2-3V INDICATIONS: GLF, BACK PAIN TECHNIQUE: 3 views of the lumbar spine were acquired. COMPARISON: [facility], CR, XR LUMBAR SPINE 2-3V, 11/18/2022, 21:08. FINDINGS: Bones: 5 [id number] vertebrae are present. There is normal bony alignment. No vertebral body compression fractures. No suspicious bony lesions. Postoperative changes of pedicular screw and yesenia fixation spanning from L2 through S1, revised from prior x-ray which had fixation from L3 through S1. No perihardware lucency. Status post discectomy. 50 percent anterior height loss at T12. Soft tissues: Overlying bowel gas pattern is normal. No suspicious soft tissue calcifications. IMPRESSION: 1. Pedicular screw and yesenia fixation spanning from L2 through S1 with interval discectomy. No evidence of hardware malfunction or loosening. 2. 50 percent anterior height loss of T12 consistent with remote compression fracture. Dictated by: Tomasz Ball M.D. on 06/12/2023 at 15:56 Approved by: Tomasz Ball M.D. on 06/12/2023 at 15:58
[2023-06-12] MEDS: LIDOCAINE PATCH 1 EACH ADH..PATCH TOP (16:42)
[2023-06-12] MEDS: ACETAMINOPHEN IV 1,000 MG/100 ML VIAL 400 MG IV (16:43)
[2023-06-12] MEDS: methocarbamoL 500 MG TABLET 750 MG PO (16:43)
[2023-06-12] MEDS: DEXAMETHASONE 10 MG/ML VIAL IV (16:43)
[2023-06-12] MEDS: KETOROLAC 30 MG/ML VIAL 15 MG IV (16:44)
[2023-06-12] MEDS: OXYCODONE IR 5 MG TABLET PO (17:28)
[2023-06-12 17:44] VITALS: BP 132/87; PULSE 76; RESP 18; TEMP 36.8; O2SAT 99
== END 2023-06-12 17:45 | disposition home or self-care (01) ==
PROVIDERS: Emergency Provider Emergency Medicine; PCP Family Medicine
DX: S39.012A Strain of muscle, fascia and tendon of lower back, initial encounter (principal); M62.830 Muscle spasm of back; W10.9XXA Fall (on) (from) unspecified stairs and steps, initial encounter
CPT/HCPCS: 72100; 96374; 96375; 99283; 99284; J0131; J1100; J1885

== ENCOUNTER → 2023-07-16 10:58 | Outpatient (CLI) | payer OTHER, MEDICAID, SELFPAY ==
[2023-07-16 12:23] LABS: Add Manual Diff / Slide Review NO; Basophils Absolute Auto 0 /uL (0-100); Basophils Percent Auto 0.6 % (0-2); Eosinophils Absolute Auto 100 /uL (0-450); Eosinophils Percent Auto 1.2 % (2-4); Hematocrit 36.9 % (41-53); Hemoglobin 11.9 g/dL (13.5-17.5); Lymphocytes Absolute Auto 1400 /uL (1100-4500); Lymphocytes Percent Auto 29.9 % (25-40); Mean Corpuscular HGB Conc 32.1 % (30-36); Mean Corpuscular Hemoglobin 24.2 PG (26-34); Mean Corpuscular Volume 75.4 fL (80-100); Monocytes Absolute Auto 500 /uL (0-900); Monocytes Percent Auto 10.5 % (3-14); Neutrophils Absolute Auto 2700 /uL (1500-7000); Neutrophils Percent Auto 57.8 % (50-75); Platelet Count 495 X10^3/uL (150-400); White Blood Cell Count 4.7 X10^3/uL (4.5-11.0)
[2023-07-16 12:44] LABS: Prothrombin Time 11.7 SECONDS (9.4-12.5)
[2023-07-16 12:46] LABS: PTT Partial Thromboplastin Tim 30 SECONDS (25.1-36.5)
[2023-07-16 12:58] LABS: BUN Creatinine Ratio 11.9 (6-22); Blood Urea Nitrogen 12 mg/dL (9-20); Calcium 9.6 mg/dL (8.4-10.2); Carbon Dioxide 22 mmol/L (22-32); Chloride 107 mmol/L (98-107); Estimated Glomerular Filt Rate > 60 mL/min (>60); Glucose 114 mg/dL (70-100); HEMOLYSIS < 15 (0-50); Potassium 4.4 mmol/L (3.4-5.1); Sodium 138 mmol/L (137-145)
== END ==
PROVIDERS: PCP Family Medicine; Referring Provider Physical Medicine & Rehabilitation; Visit Provider Physical Medicine & Rehabilitation
DX: Z01.818 Encounter for other preprocedural examination (principal); Z01.812 Encounter for preprocedural laboratory examination; Z51.81 Encounter for therapeutic drug level monitoring
CPT/HCPCS: 36415; 80048; 85025; 85610; 85730; 93005